=== PATIENT | male | born 1950 | race Caucasian/White ===

== ENCOUNTER 2016-11-28 20:10 | Emergency (ER) | payer MEDICARE, OTHER ==
[~2016-11-28 20:10] MED LIST: ASPI81 PO; ATOR20TA42 PO; MACR100C PO; METO25 PO; PANT20 PO; TRAM50 PO
[2016-11-28 20:11] VITALS: BP 155/79; PULSE 61; RESP 16; TEMP 97.4; O2SAT 97
--- NOTE | 2016-11-28 20:37 | PD ---
HPI Chief Complaint: Complaint Time Seen by Provider: 20:32 Travel History International Travel<30 days: No Contact w/Intl Traveler<30days: No History of Present Illness HPI 66-year-old male presents to the emergency department for evaluation of a blocked Heard catheter. The patient states that he had an outpatient procedure to scrape the inner lining of his bladder performed by Dr. Cesar today and had a Heard catheter placed post operatively. States that about 3 hours ago he began to notice bladder distention and that there was not any urine draining through the Heard catheter. He complains of suprapubic pain and distention and feeling as though he needs to urinate. He denies any fever, chills, nausea, vomiting, diarrhea, constipation. No other complaints. PFSH Past Medical History Hx Anticoagulant Therapy: No Arthritis: Yes Autoimmune Disease: No Blood Disorders: No Anxiety: Yes Depression: Yes Cardiac Catheterization: Yes (1997) Cardiovascular Problems: No High Cholesterol: Yes Chemotherapy: No Congestive Heart Failure: No COPD: Yes Cerebrovascular Accident: No Coronary Artery Disease: Yes Diabetes: No Diminished Hearing: No Endocrine: No Gastrointestinal Disorders: Yes GERD: Yes Glaucoma: No Headaches: Yes Hepatitis: No Hiatal Hernia: No Hypertension: No Immune Disorder: No Inguinal Hernia: Yes Kidney Stones: Yes Musculoskeletal: Yes (BACK INJURY 1989) Reproductive: No Respiratory: No Migraines: No Myocardial Infarction: Yes Radiation Therapy: No Renal Failure: No Seizures: No Sleep Apnea: No Thyroid Disease: No Ulcer: No Past Surgical History Abdominal Surgery: Yes (HERNIA REPAIR) AICD: No Arteriovenous Shunt: No Coronary Artery Bypass Graft: Yes (2007, 5 vessel) Ear Surgery: No Endocrine Surgery: No Eye Surgery: No Genitourinary Surgery: No Gynecologic Surgery: No Hysterectomy: No Insulin Pump: No Joint Replacement: No Oral Surgery: Yes (teeth removal) Pacemaker: No Thoracic Surgery: No Other Surgery: Yes (R 4th finger amp,lumbar and cervical surg) Social History Alcohol Use: No Tobacco Use: Yes (1PPD) Substance Use: No Allergies-Medications (Allergen,Severity, Reaction): Coded Allergies: Contrast Media (Verified Allergy, Severe, 11/28/16) Reported Meds & Prescriptions Reported Meds & Active Scripts Active Ultram (Tramadol HCl) 50 Mg Tab 50 Mg PO Q6H PRN FOR PAIN Macrobid (Nitrofurantoin Macrocrystals) 100 Mg Cap 100 Mg PO BID 7 Days Protonix (Pantoprazole Sodium) 20 Mg Tab 20 Mg PO DAILY Reported Metoprolol Tartrate 25 mg (Metoprolol Tartrate) 25 Mg Tab 12.5 Mg PO BID Lipitor (Atorvastatin Calcium) 20 Mg Tab 20 Mg PO HS Aspirin 81 Mg Tab 81 Mg PO DAILY Review of Systems Except as stated in HPI: all other systems reviewed are Neg Physical Exam Narrative GENERAL: Well-nourished and well-developed pleasant patient in no acute distress. SKIN: Warm and dry. HEAD: Normocephalic and atraumatic. EYES: No injection, drainage, or hyphema noted. PERRLA. EOMI. ENT: No nasal drainage noted. Oropharynx is clear. NECK: Supple and the trachea is midline. CARDIOVASCULAR: Regular rate and rhythm. RESPIRATORY: Breath sounds are equal bilaterally with no accessory muscle use, wheezing, rhonchi, or crackles. GASTROINTESTINAL: Suprapubic tenderness. Abdomen is soft and nondistended. GENITOURINARY: Circumcised. No lesions or erythema. No urethral discharge. Heard catheter in place. Performed in the presence of David SAWYER. MUSCULOSKELETAL: No obvious deformities, swelling, cyanosis, or ecchymosis is present throughout the upper and lower extremities. Patient has full range of motion without any signs of neurovascular compromise. NEUROLOGICAL: Awake, alert, and oriented. Normal speech and gait. Cranial nerves are grossly intact. Data Data Last Documented VS Vital Signs Date Time Temp Pulse Resp B/P Pulse Ox O2 Delivery O2 Flow Rate FiO2 11/28/16 20:28 61 15 11/28/16 20:11 97.4 155/79 97 Room Air Orders Bladder/Catheter Irrigation (11/28/16 20:32) Acetamin-Hydrocod 325-5 Mg ([place] 5-325 (11/28/16 21:00) MDM Medical Decision Making Medical Screen Exam Complete: Yes Emergency Medical Condition: Yes Differential Diagnosis Heard catheter obstruction versus urinary retention versus Heard catheter failure Narrative Course 66-year-old male presents to the emergency department for evaluation of obstructive Heard catheter. Patient is afebrile, vital signs are stable. He does have some suprapubic tenderness. Nursing staff irrigated the catheter which allowed for urine to flow freely. There is hematuria but this is secondary to his procedure today. He is having discomfort and pain s/p procedure so we'll give him a short prescription for pain medication. Instructed to follow-up with his urologist. Stable for discharge. I discussed the case with my attending physician Dr. Sepulveda who is aware of the patients history, physical examination findings, and treatment plan. Diagnosis Primary Impression: Obstructed Heard catheter Qualified Code: T83.091A - Obstructed Heard catheter, initial encounter Referrals: Urologist Patient Instructions: Heard Catheter Placement and Care (ED), General Instructions Additional Instructions: Take medication as prescribed. Do not take Lortab with alcohol or while driving. Follow-up with your Urologist. Return to the ED for any acute worsening of symptoms. Med/Other Pt SpecificInfo: Prescription(s) given Scripts Hydrocodone-Acetaminophen (Lortab)5-325 Mg Tab1 Tab PO Q6H PRN (PAIN) #8 TAB Ref 0 Prov:Jeanie Sepulveda MD 11/28/16 Disposition: 01 DISCHARGE HOME Condition: Stable Yumi Hyde Nov 28, 2016 20:37
[2016-11-28] MEDS ORDERED: HYDR-3533 PO (20:53)
--- NOTE | 2016-11-28 20:59 | PD ---
Data Data Last Documented VS Vital Signs Date Time Temp Pulse Resp B/P Pulse Ox O2 Delivery O2 Flow Rate FiO2 11/28/16 20:28 61 15 11/28/16 20:11 97.4 155/79 97 Room Air Orders Bladder/Catheter Irrigation (11/28/16 20:32) Acetamin-Hydrocod 325-5 Mg ([place] 5-325 (11/28/16 21:00) MDM Supervised Visit with PETE: Yes Narrative Course The history, exam, and medical decision-making in the associated midlevel provider note were completed with my assistance. I reviewed and agree with the findings presented. I attest that I had a [id number] encounter with the patient on the same day, and personally performed and documented my assessment and findings in the medical record. *My assessment and Findings: This is a 66-year-old male who had resection of bladder tumors today by Dr. Cesar and had a Heard catheter placed. He says that 3 hours ago he stopped making urine and he appreciated some bladder discomfort. Here in the emergency department he does have some blood-tinged urine. His Heard catheter was flushed and he drained 300 cc of urine. I did a bedside ultrasound which demonstrated a decompressed bladder. I think some of this discomfort is related to postsurgical pain. Patient will be discharged on pain medicine and can follow-up with his urologist. He was instructed on flushing his Heard catheter. Diagnosis Primary Impression: Obstructed Heard catheter Qualified Code: T83.091A - Obstructed Heard catheter, initial encounter Referrals: Urologist Patient Instructions: General Instructions, Heard Catheter Placement and Care ( ED) Additional Instruction: Take medication as prescribed. Do not take Lortab with alcohol or while driving. Follow-up with your Urologist. Return to the ED for any acute worsening of symptoms. Scripts Hydrocodone-Acetaminophen (Lortab)5-325 Mg Tab1 Tab PO Q6H PRN (PAIN) #8 TAB Ref 0 Prov:Jeanie Sepulveda MD 11/28/16 Disposition: 01 DISCHARGE HOME Condition: Stable Jeanie Sepulveda MD Nov 28, 2016 20:59
[2016-11-28] MEDS ORDERED: ACETAMINOPHEN/HYDROcodone 325 MG/5 MG TAB PO ONE (21:00)
== END 2016-11-28 21:49 | disposition home or self-care (01) ==
LOC: NEPC 20:10
DX: T83.091A Other mechanical complication of indwelling urethral catheter, initial encounter (principal); J44.9 Chronic obstructive pulmonary disease, unspecified; I25.10 Atherosclerotic heart disease of native coronary artery without angina pectoris; F17.210 Nicotine dependence, cigarettes, uncomplicated
CPT/HCPCS: 99283

== ENCOUNTER 2017-02-26 08:45 | Emergency (ER) | payer OTHER ==
[~2017-02-26] VITALS: Ht 190.5 cm; Wt 92.0 kg
[~2017-02-26 08:45] MED LIST changes: +HYDR-3533 PO
[2017-02-26 08:53] VITALS: BP 141/85; PULSE 62; RESP 16; O2SAT 98
[2017-02-26 09:03] VITALS: BP 141/65; PULSE 58; RESP 18; TEMP 97.5; O2SAT 98
[2017-02-26 09:45] VITALS: RESP 18; O2SAT 99
[2017-02-26] MEDS ORDERED: SODIUM CHLORIDE 0.9% FLUSH 10 ML FLUSH IVF PRN (09:45)
[2017-02-26 09:59] LABS: AUTOMATED NEUTROPHIL # 5.5 TH/MM3 (1.8-7.7); BASOPHIL # 0.1 TH/MM3 (0-0.2); EOSINOPHIL # 0.3 TH/MM3 (0-0.4); EOSINOPHIL % 3.8 % (0.0-4.0); HEMATOCRIT 45.4 % (39.0-51.0); HEMO FLAGS DIFF FINAL; LYMPH % 19.6 % (9.0-44.0); LYMPHOCYTE # 1.7 TH/MM3 (1.0-4.8); MEAN CELL VOLUME 88.2 FL (80.0-100.0); MEAN CORPUSCULAR HEMOGLOBIN 29.2 PG (27.0-34.0); MEAN CORPUSCULAR HGB CONC 33.1 % (32.0-36.0); MONO % 9.6 % (0.0-8.0); PLATELET COUNT 198 TH/MM3 (150-450); RED BLOOD COUNT 5.15 MIL/MM3 (4.50-5.90); RED CELL DISTRIBUTION WIDTH 15.1 % (11.6-17.2); WHITE BLOOD COUNT 8.4 TH/MM3 (4.0-11.0)
[2017-02-26 10:10] LABS: ANION GAP 7 MEQ/L (5-15); AST (GOT) 18 U/L (15-37); BICARBONATE 25.7 MEQ/L (21.0-32.0); BLOOD UREA NITROGEN 33 MG/DL (7-18); CHLORIDE 106 MEQ/L (98-107); GLOMERULAR FILTRATION RATE 40 ML/MIN (>89); MAGNESIUM 2.3 MG/DL (1.5-2.5); POTASSIUM 4.4 MEQ/L (3.5-5.1); SODIUM (NA) 139 MEQ/L (136-145)
[2017-02-26 10:16] LABS: ALKALINE PHOSPHATASE 134 U/L (45-117); ALT (GPT) 22 U/L (12-78); TOTAL BILIRUBIN ADULT 0.7 MG/DL (0.2-1.0)
[2017-02-26] MEDS ORDERED: AMIODARONE INJ 150 MG in DEXTROSE 5% IN WATER 100ML INJ 97 ML IV ONE ×2 (10:30)
[2017-02-26] MEDS ORDERED: AMIO400T PO (10:34)
--- NOTE | 2017-02-26 10:34 | PD ---
HPI Chief Complaint: Syncope/Near-Syncope Time Seen by Provider: 09:03 Travel History International Travel<30 days: No Contact w/Intl Traveler<30days: No Traveled to known affect area: No History of Present Illness HPI Is a 66-year-old man who presents to the emergency department complaining of intermittent dizziness and vertigo. States symptoms started the past couple weeks. The been worse over the past 1 week. He had one episode of syncope this started while he was sitting in a door. He felt lightheaded dizziness and woke up on the floor. Syncope apparently lasted just a few seconds. No chest pain. No trouble breathing. He does have a history of A. fib. He went to the [facility] today and they sent him over to the emergency department. He states in route with EMS he had one episode of A. fib associated with the same dizziness he's been having. He otherwise has been feeling generally well and healthy. No other complaints. History Past Medical History Narrative Medical History of A. fib times years History of bladder cancer, receiving intermittent infusions into the bladder chemotherapy actively now. CAD, history of CABG in 2007 Hyperlipidemia Social History Alcohol Use: No Tobacco Use: Yes (1PPD) Allergies-Medications (Allergen,Severity, Reaction): Coded Allergies: Contrast Media (Verified Allergy, Severe, 11/28/16) Iodine (Verified Allergy, Unknown, 02/26/17) Reported Meds & Prescriptions Reported Meds & Active Scripts Active Lortab (Hydrocodone-Acetaminophen) 5-325 Mg Tab 1 Tab PO Q6H PRN Ultram (Tramadol HCl) 50 Mg Tab 50 Mg PO Q6H PRN FOR PAIN Macrobid (Nitrofurantoin Macrocrystals) 100 Mg Cap 100 Mg PO BID 7 Days Protonix (Pantoprazole Sodium) 20 Mg Tab 20 Mg PO DAILY Reported Metoprolol Tartrate 25 mg (Metoprolol Tartrate) 25 Mg Tab 12.5 Mg PO BID Lipitor (Atorvastatin Calcium) 20 Mg Tab 20 Mg PO HS Aspirin 81 Mg Tab 81 Mg PO DAILY Review of Systems Except as stated in HPI: all other systems reviewed are Neg Physical Exam Narrative GENERAL: 66-year-old man, no acute distress. SKIN: Focused skin assessment warm/dry. HEAD: Atraumatic. Normocephalic. EYES: Pupils equal and round. No scleral icterus. No injection or drainage. ENT: No nasal bleeding or discharge. Mucous membranes pink and moist. NECK: Trachea midline. No JVD. CARDIOVASCULAR: Regular rate and rhythm. No murmur appreciated. RESPIRATORY: No accessory muscle use. Clear to auscultation. Breath sounds equal bilaterally. GASTROINTESTINAL: Abdomen soft, non-tender, nondistended. Hepatic and splenic margins not palpable. MUSCULOSKELETAL: No obvious deformities. No clubbing. No cyanosis. No edema. NEUROLOGICAL: Awake and alert. No obvious cranial nerve deficits. Motor grossly within normal limits. Normal speech. PSYCHIATRIC: Appropriate mood and affect; insight and judgment normal. Data Data Last Documented VS Vital Signs Date Time Temp Pulse Resp B/P Pulse Ox O2 Delivery O2 Flow Rate FiO2 02/26/17 09:45 18 99 Room Air 02/26/17 09:03 62 02/26/17 09:03 97.5 141/65 Orders Complete Blood Count With Diff (02/26/17 09:38) Comprehensive Metabolic Panel (02/26/17 09:38) Magnesium (Mg) (02/26/17 09:38) Troponin I (02/26/17 09:38) Chest, Single Ap (02/26/17 09:38) Ecg Monitoring (02/26/17 09:38) Iv Access Insert/Monitor (02/26/17 09:38) Oximetry (02/26/17 09:38) Oxygen Administration (02/26/17 09:38) Sodium Chloride 0.9% Flush (Ns Flush) (02/26/17 09:45) Labs Laboratory Tests Test 02/26/17 09:02 White Blood Count 8.4 TH/MM3 Red Blood Count 5.15 MIL/MM3 Hemoglobin 15.1 GM/DL Hematocrit 45.4 % Mean Corpuscular Volume 88.2 FL Mean Corpuscular Hemoglobin 29.2 PG Mean Corpuscular Hemoglobin 33.1 % Concent Red Cell Distribution Width 15.1 % Platelet Count 198 TH/MM3 Mean Platelet Volume 8.6 FL Neutrophils (%) (Auto) 66.0 % Lymphocytes (%) (Auto) 19.6 % Monocytes (%) (Auto) 9.6 % Eosinophils (%) (Auto) 3.8 % Basophils (%) (Auto) 1.0 % Neutrophils # (Auto) 5.5 TH/MM3 Lymphocytes # (Auto) 1.7 TH/MM3 Monocytes # (Auto) 0.8 TH/MM3 Eosinophils # (Auto) 0.3 TH/MM3 Basophils # (Auto) 0.1 TH/MM3 CBC Comment DIFF FINAL Differential Comment Sodium Level 139 MEQ/L Potassium Level 4.4 MEQ/L Chloride Level 106 MEQ/L Carbon Dioxide Level 25.7 MEQ/L Anion Gap 7 MEQ/L Blood Urea Nitrogen 33 MG/DL Creatinine 1.70 MG/DL Estimat Glomerular Filtration 40 ML/MIN Rate Random Glucose 102 MG/DL Calcium Level 9.1 MG/DL Magnesium Level 2.3 MG/DL Total Bilirubin 0.7 MG/DL Aspartate Amino Transf 18 U/L (AST/SGOT) Alanine Aminotransferase 22 U/L (ALT/SGPT) Alkaline Phosphatase 134 U/L Troponin I LESS THAN 0.02 NG/ML Total Protein 7.1 GM/DL Albumin 3.6 GM/DL [facility] Medical Decision Making Medical Screen Exam Complete: Yes Emergency Medical Condition: Yes Interpretation(s) My review of EKG: Normal sinus rhythm at a rate of 61, some sinus arrhythmia, small inferior Q waves, no definite evidence of acute ischemia. LABS: CBC unremarkable CMP, mildly elevated BUN/creatinine, asthma GFR 40 Troponin negative Chest x-ray: Negative. Differential Diagnosis A. fib, dizziness, anemia, electrolyte abnormality, other Narrative Course Medical decision making 66-year-old man with intermittent dizzy episodes, one episode of syncope, appears to correspond paroxysmal A. fib. Heart rates low at baseline. Patient does not follow with a local hand assembler, gets all of his care through the [facility]. Looks otherwise well and is a somatic in between episodes. At this point would recommend attempt at rhythm control, and referral to cardiology for further evaluation. He's been on rhythm control medicine in the past. We'll start amiodarone. Diagnosis Primary Impression: Atrial fibrillation Additional Impression: Syncope Additional Instructions: Take amiodarone as prescribed. Follow-up with your primary doctor with the [facility], and with cardiology with the [facility] , within the next one to 2 weeks. Return to the emergency department for any chest pain, trouble breathing, or any other new or worsening symptoms. Med/Other Pt SpecificInfo: Prescription(s) given Scripts Amiodarone 400 Mg Vme323 Mg PO BID 3 Days Ref 0 Prov:Aravind Whiteside MD 02/26/17 Disposition: 01 DISCHARGE HOME Condition: Stable Aravind Whiteside. MD Feb 26, 2017 10:34
--- NOTE | 2017-02-26 10:45 | RADRPT ---
EXAM DATE/TIME: 02/26/2017 09:44 [facility] COMPARISON: CHEST SINGLE AP, January 11, 2016, 12:35. INDICATIONS : Dizziness MEDICAL HISTORY : Chronic obstructive pulmonary disease. atrial fibrillation SURGICAL HISTORY : CABG. ENCOUNTER: Initial ACUITY: 1 day PAIN SCORE: 0/10 LOCATION: Bilateral chest FINDINGS: Portable AP view of the chest demonstrates a normal-sized cardiac silhouette in this patient post med rafia sternotomy and CABG. There is mild interstitial prominence in the mid and lower lung zones bilate rally similar to the prior study. No effusion, consolidation, or pneumothorax is identified. Bones an d soft tissues demonstrate no acute finding. CONCLUSION: Stable chest x-ray with interstitial prominence bilaterally in this patient post CABG. No acute findi ng is appreciated. Mc Paul MD on February 26, 2017 at 10:42 Board Certified Radiologist. This report was verified electronically.
[2017-02-26 10:55] VITALS: BP 146/82; PULSE 56; RESP 18; O2SAT 99
[2017-02-26 11:17] VITALS: BP 146/82; PULSE 52; RESP 18; O2SAT 98
--- NOTE | 2017-02-26 13:23 | EKG ---
Date Performed: 02/26/2017 Time Performed: 08:56:27 PTAGE: 66 years EKG: Sinus rhythm WITH SINUS ARRHYTHMIA POSSIBLE INFERIOR MYOCARDIAL INFARCTION BORDERLINE ECG NO PREVIOUS TRACING DOCTOR: Jayro Mccarthy Interpretating Date/Time 02/26/2017 13:21:40
== END 2017-02-26 13:00 | disposition home or self-care (01) ==
LOC: NEPE 08:45
DX: I48.91 Unspecified atrial fibrillation (principal); R55 Syncope and collapse; F17.210 Nicotine dependence, cigarettes, uncomplicated; Z95.1 Presence of aortocoronary bypass graft; I25.10 Atherosclerotic heart disease of native coronary artery without angina pectoris; E78.5 Hyperlipidemia, unspecified; I49.8 Other specified cardiac arrhythmias
CPT/HCPCS: 71010; 80053; 83735; 84484; 85025; 93005; 96374; 99284; J0282

== ENCOUNTER 2017-09-08 07:08 | Inpatient (IN) | payer OTHER, MEDICARE ==
[2017-09-08] VITALS (19 sets, daily range): BP systolic 93–132; BP diastolic 58–81; PULSE 65–155; RESP 16–20; TEMP 97.7–97.9; O2SAT 95–98
[~2017-09-08] VITALS: Ht 190.5 cm; Wt 90.5 kg
[~2017-09-08 07:08] MED LIST changes: +AMIO400T PO
--- NOTE | 2017-09-08 07:19 | PD ---
HPI Chief Complaint: Chest Pain Time Seen by Provider: 07:18 Travel History International Travel<30 days: No Contact w/Intl Traveler<30days: No Traveled to known affect area: No History of Present Illness HPI 66-year-old male came to the emergency room with history of shortness of breath and chest pain progressively worsening upon exertion for past 1 week. Patient says that one week ago he was in the [facility] to get a cyst removed and analyzed from his back. During the procedure his heart rate was very high and they had to send him to the emergency room. He was given a medicine through his IV and then started on by mouth Cardizem daily. The procedure was done and patient was discharged home. He says that he continues to have the shortness of breath since then. When he arrived in triage his heart rate was in 140s to 150s. Patient has also kept a log of his blood pressure and heart rate for past 1 week. His heart rate has been higher than 100s all throughout. He describes his pain as a dull ache on the left parasternal area without any radiation. He says the pain is worse when he gets up and walks few steps. Same thing with the shortness of breath. He says that his pain is gone when he is laying down. Patient smokes one and half pack of cigarettes per day. He's not on any oxygen at home. He has significant coronary artery disease history with a bypass in 2007. He takes 1 baby aspirin every day. [facility] Past Medical History Narrative Medical List of his past medical, surgical, social and family history is reviewed from the nursing note. Hx Anticoagulant Therapy: No Arthritis: Yes Autoimmune Disease: No Blood Disorders: No Anxiety: Yes Depression: Yes Cardiac Catheterization: Yes (1997) Cardiovascular Problems: Yes High Cholesterol: Yes Chemotherapy: No Congestive Heart Failure: No COPD: Yes Cerebrovascular Accident: No Coronary Artery Disease: Yes Diabetes: No Diminished Hearing: No Endocrine: No Gastrointestinal Disorders: Yes GERD: Yes Glaucoma: No Headaches: Yes Hepatitis: No Hiatal Hernia: No Heparin Induced Thrombocytopen: No Hypertension: No Immune Disorder: No Inguinal Hernia: Yes Kidney Stones: Yes Musculoskeletal: Yes (BACK INJURY 1989) Reproductive: No Respiratory: Yes (copd smoker) Migraines: No Myocardial Infarction: Yes Radiation Therapy: No Renal Failure: No Seizures: No Sleep Apnea: No Thyroid Disease: No Ulcer: No Past Surgical History Abdominal Surgery: Yes (HERNIA REPAIR) AICD: No Arteriovenous Shunt: No Coronary Artery Bypass Graft: Yes (2008, 5 vessel) Ear Surgery: No Endocrine Surgery: No Eye Surgery: No Genitourinary Surgery: No Gynecologic Surgery: No Hysterectomy: No Insulin Pump: No Joint Replacement: No Neurologic Surgery: No Oral Surgery: Yes (teeth removal) Pacemaker: No Thoracic Surgery: No Other Surgery: Yes (R 4th finger amp,lumbar and cervical surg) Social History Alcohol Use: No Tobacco Use: Yes (1PPD) Substance Use: No Allergies-Medications (Allergen,Severity, Reaction): Coded Allergies: diatrizoate meglumine (Unverified Allergy, Severe, 09/08/17) gadobenic acid (Unverified Allergy, Severe, 09/08/17) gadodiamide (Unverified Allergy, Severe, 09/08/17) gadoteridol (Unverified Allergy, Severe, 09/08/17) iodixanol (Unverified Allergy, Severe, 09/08/17) iohexol (Unverified Allergy, Severe, 09/08/17) iodine (Unverified Allergy, Unknown, 09/08/17) peanut (Verified Allergy, Unknown, 09/08/17) potassium iodide (Unverified Allergy, Unknown, 09/08/17) povidone-iodine (Unverified Allergy, Unknown, 09/08/17) sodium iodide (Unverified Allergy, Unknown, 09/08/17) sodium iodide (Unverified Allergy, Unknown, 09/08/17) Comments List of his allergies reviewed from the nursing note. Reported Meds & Prescriptions Reported Meds & Active Scripts Active Lortab (Hydrocodone-Acetaminophen) 5-325 Mg Tab 1 Tab PO Q6H PRN Reported Diltiazem (Diltiazem HCl) 30 Mg Tab 30 Mg PO BID Ranitidine (Ranitidine HCl) 150 Mg Tab 150 Mg PO BID [Sulfer] Aspirin 81 Mg Chew 81 Mg CHEW DAILY Narrative Medication List of his home medications reviewed from the nursing note. Review of Systems Except as stated in HPI: all other systems reviewed are Neg Cardiovascular: Positive: Chest Pain or Discomfort, Palpitations, Dyspnea on exertion Respiratory: Positive: Shortness of Breath Physical Exam Narrative GENERAL: Awake, alert, anxious, moderate distress SKIN: Focused skin assessment warm/dry. HEAD: Atraumatic. Normocephalic. EYES: Pupils equal and round. No scleral icterus. No injection or drainage. ENT: No nasal bleeding or discharge. Mucous membranes pink and moist. NECK: Trachea midline. No JVD. CARDIOVASCULAR: Irregularly irregular, tachycardic. No murmur appreciated. RESPIRATORY: No accessory muscle use. Clear to auscultation. Breath sounds equal bilaterally. GASTROINTESTINAL: Abdomen soft, non-tender, nondistended. Hepatic and splenic margins not palpable. MUSCULOSKELETAL: No obvious deformities. No clubbing. No cyanosis. No edema. NEUROLOGICAL: Awake and alert. No obvious cranial nerve deficits. Motor grossly within normal limits. Normal speech. PSYCHIATRIC: Appropriate mood and affect; insight and judgment normal. Data Data Last Documented VS Vital Signs Date Time Temp Pulse Resp B/P (MAP) Pulse Ox O2 Delivery O2 Flow Rate FiO2 09/08/17 09:12 105 16 122/74 (90) 97 Nasal Cannula 2.00 09/08/17 07:11 97.7 Orders Orders Diltiazem Inj (Cardizem Inj) (09/08/17 07:30) Electrocardiogram (09/08/17 07:25) Basic Metabolic Panel (Bmp) (09/08/17 07:25) B-Type Natriuretic Peptide (09/08/17 07:25) Ckmb (Isoenzyme) Profile (09/08/17 07:25) Complete Blood Count With Diff (09/08/17 07:25) Magnesium (Mg) (09/08/17 07:25) Prothrombin Time / Inr (Pt) (09/08/17 07:25) Act Partial Throm Time (Ptt) (09/08/17 07:25) Troponin I (09/08/17 07:25) Chest, Single Ap (09/08/17 07:25) Ecg Monitoring (09/08/17 07:25) Bilateral Bp Monitoring (09/08/17 07:25) Iv Access Insert/Monitor (09/08/17 07:25) Oximetry (09/08/17 07:25) Oxygen Administration (09/08/17 07:25) Aspirin Chew (Aspirin Chew) (09/08/17 07:30) Sodium Chloride 0.9% Flush (Ns Flush) (09/08/17 07:30) Diltiazem Inj (Cardizem Inj) (09/08/17 07:25) Vital Signs (Adult) Q15MX4,Q4H (09/08/17 07:31) [employer]ra[employer] Polisher Helper / Telemetry ANN.Q8H (09/08/17 07:31) Cardiac Rhythm ANN.Q8H (09/08/17 07:31) Notify Dr: Other (09/08/17 07:31) Diltiazem Inj (Cardizem Inj) (09/08/17 07:45) Heparin Infusion ANN.Q1H (09/08/17 08:40) Heparin Inj (Heparin Inj) (09/08/17 08:45) Heparin Inj (Heparin Inj) (09/08/17 14:45) Heparin Inj (Heparin Inj) (09/08/17 14:45) Heparin-D5w 25,000 U/250 Ml (Heparin-D5w (09/08/17 08:45) Act Partial Throm Time (Ptt) (09/08/17 08:40) Cbc No Diff, Includes Plts (09/08/17 08:40) Cbc No Diff, Includes Plts (09/11/17 06:00) Act Partial Throm Time (Ptt) (09/08/17 15:40) Occult Blood (Hemoccult) Stool (09/08/17 08:40) Furosemide Inj (Lasix Inj) (09/08/17 08:45) Admit Order (Ed Use Only) (09/08/17 09:52) Labs Laboratory Tests Test 09/08/17 07:20 09/08/17 09:20 White Blood Count 8.9 TH/MM3 8.9 TH/MM3 Red Blood Count 5.07 MIL/MM3 4.78 MIL/MM3 Hemoglobin 14.8 GM/DL 14.0 GM/DL Hematocrit 44.5 % 42.2 % Mean Corpuscular Volume 87.8 FL 88.4 FL Mean Corpuscular Hemoglobin 29.3 PG 29.3 PG Mean Corpuscular Hemoglobin Concent 33.4 % 33.1 % Red Cell Distribution Width 15.5 % 15.3 % Platelet Count 192 TH/MM3 178 TH/MM3 Mean Platelet Volume 8.4 FL 8.2 FL Neutrophils (%) (Auto) 68.6 % Lymphocytes (%) (Auto) 22.1 % Monocytes (%) (Auto) 6.6 % Eosinophils (%) (Auto) 2.3 % Basophils (%) (Auto) 0.4 % Neutrophils # (Auto) 6.1 TH/MM3 Lymphocytes # (Auto) 2.0 TH/MM3 Monocytes # (Auto) 0.6 TH/MM3 Eosinophils # (Auto) 0.2 TH/MM3 Basophils # (Auto) 0.0 TH/MM3 CBC Comment DIFF FINAL Differential Comment Prothrombin Time 11.8 SEC Prothromb Time International Ratio 1.1 RATIO Activated Partial Thromboplast Time 29.3 SEC Blood Urea Nitrogen 26 MG/DL Creatinine 1.97 MG/DL Random Glucose 141 MG/DL Calcium Level 9.4 MG/DL Magnesium Level 2.2 MG/DL Sodium Level 138 MEQ/L Potassium Level 4.4 MEQ/L Chloride Level 108 MEQ/L Carbon Dioxide Level 24.8 MEQ/L Anion Gap 5 MEQ/L Estimat Glomerular Filtration Rate 34 ML/MIN Total Creatine Kinase 75 U/L Troponin I 0.02 NG/ML B-Type Natriuretic Peptide 171 PG/ML MDM Medical Decision Making Medical Screen Exam Complete: Yes Emergency Medical Condition: Yes Medical Record Reviewed: Yes Interpretation(s) Twelve-lead EKG was reviewed by me. Atrial fibrillation, normal axis, RVR. Heart rate of 150 bpm. Differential Diagnosis A. fib with RVR, CHF, ACS, non-STEMI Narrative Course 8:50 AM blood test results are back. Patient has renal insufficiency. Chest x- ray shows mild congestion. Patient initially was given 20 mg of Cardizem bolus that brought the heart rate down to 100. He is on a Cardizem drip currently heart rate is between 80s to 100s. He has been persistently A. fib. I started him on heparin bolus and drip. Troponin is negative. I want to admit him for new onset atrial fibrillation chest pain. Critical Care Narrative Aggregate critical care time was 45 minutes. Time to perform other separately billable procedures was not included in the critical care time. My time did not include minutes spent treating any other patients simultaneously or on activities that did not directly contribute to the patient's treatment. The services I provided to this patient were to treat and/or prevent clinically significant deterioration that could result in: A. fib with RVR, Cardizem bolus with drip, heparin bolus and drip I provided critical care services requiring my management, as noted below: Chart data review, documentation time, medication orders and management, vital sign assessments/reviewing monitor data, ordering and reviewing lab tests, ordering and interpreting/reviewing x-rays and diagnostic studies, care of the patient and discussion of the patient with the admitting physicians. Procedures EKG Prior to Arrival: No Diagnosis Primary Impression: Atrial fibrillation with RVR Additional Impressions: New onset a-fib Chest pain Qualified Codes: R07.9 - Chest pain, unspecified Admitting Information Admitting Physician Requests: Admit Marques Jeong MD Sep 08, 2017 07:19
[2017-09-08] MEDS ORDERED: DILTIAZEM HCL 25 MG/5 ML VIAL ONE ×2 (07:25)
[2017-09-08] MEDS ORDERED: DILTIAZEM HCL 25 MG/5 ML VIAL IV ONE ×2 (07:30)
[2017-09-08] MEDS ORDERED: ASPIRIN 81 MG CHEW TAB PO ONE ×2 (07:30)
[2017-09-08] MEDS ORDERED: SODIUM CHLORIDE 0.9% FLUSH 10 ML FLUSH IVF PRN ×2 (07:30)
[2017-09-08] MEDS ORDERED: ASPI81CH CHEW ×2 (07:37)
[2017-09-08] MEDS ORDERED: DILT30TA PO ×2 (07:37)
[2017-09-08] MEDS ORDERED: RANI150T PO ×2 (07:37)
[2017-09-08] MEDS ORDERED: [UNRECOGNIZED DRUG - OTHER] ×2 (07:37)
[2017-09-08] MEDS ORDERED: DILTIAZEM INJ 125 MG in SODIUM CHLORIDE 0.9% INJ 100 ML IV PRN ×4 (07:45)
[2017-09-08 07:48] LABS: AUTOMATED NEUTROPHIL # 6.1 TH/MM3 (1.8-7.7); BASOPHIL % 0.4 % (0.0-2.0); EOSINOPHIL # 0.2 TH/MM3 (0-0.4); EOSINOPHIL % 2.3 % (0.0-4.0); HEMATOCRIT 44.5 % (39.0-51.0); HEMOGLOBIN 14.8 GM/DL (13.0-17.0); LYMPH % 22.1 % (9.0-44.0); MEAN CELL VOLUME 87.8 FL (80.0-100.0); MEAN CORPUSCULAR HEMOGLOBIN 29.3 PG (27.0-34.0); MEAN CORPUSCULAR HGB CONC 33.4 % (32.0-36.0); MEAN PLATELET VOLUME 8.4 FL (7.0-11.0); MONO % 6.6 % (0.0-8.0); MONOCYTE # 0.6 TH/MM3 (0-0.9); NEUT % 68.6 % (16.0-70.0); PLATELET COUNT 192 TH/MM3 (150-450); RED BLOOD COUNT 5.07 MIL/MM3 (4.50-5.90); RED CELL DISTRIBUTION WIDTH 15.5 % (11.6-17.2); WHITE BLOOD COUNT 8.9 TH/MM3 (4.0-11.0)
--- NOTE | 2017-09-08 07:50 | RADRPT ---
EXAM DATE/TIME: 09/08/2017 07:37 [facility] COMPARISON: CHEST SINGLE AP, February 26, 2017, 9:44. INDICATIONS : Chest pain MEDICAL HISTORY : HISTORY : Chronic obstructive pulmonary disease. atrial fibrillation SURGICAL HISTORY : ENCOUNTER: Initial ACUITY: 1 day PAIN SCORE: 0/10 LOCATION: chest FINDINGS: A single view of the chest demonstrates the lungs to be symmetrically aerated without evidence of mas s, infiltrate or effusion. There is mild diffuse interstitial prominence throughout the lungs. Clips and wires suggest CABG The cardiomediastinal contours are unremarkable. Osseous structures are intac t. CONCLUSION: Stable appearance of the chest. Lungs remain grossly clear. Mild diffuse interstitial prominence.. Aravind Hoffman MD on September 08, 2017 at 7:47 Board Certified Radiologist. This report was verified electronically.
[2017-09-08 07:58] LABS: INTERNATIONAL NORMALIZED RATIO 1.1 RATIO; PROTHROMBIN TIME - PATIENT 11.8 SEC (9.8-11.6)
[2017-09-08 08:05] LABS: BICARBONATE 24.8 MEQ/L (21.0-32.0); CALCIUM 9.4 MG/DL (8.5-10.1); CREATININE 1.97 MG/DL (0.60-1.30); MAGNESIUM 2.2 MG/DL (1.5-2.5)
[2017-09-08 08:09] LABS: TROPONIN I 0.02 NG/ML (0.02-0.05)
[2017-09-08] MEDS ORDERED: FUROSEMIDE 40 MG/4 ML VIAL IV PUSH ONE ×2 (08:45)
[2017-09-08] MEDS ORDERED: HEPARIN SODIUM - IV 10,000 UNITS/10 ML VIAL IV ONE ×2 (08:45)
[2017-09-08] MEDS: HEPARIN-D5W 25,000 U/250 ML 250 ML IV PRN ×2 (09:33)
[2017-09-08 09:54] LABS: HEMATOCRIT 42.2 % (39.0-51.0); MEAN CELL VOLUME 88.4 FL (80.0-100.0); MEAN CORPUSCULAR HEMOGLOBIN 29.3 PG (27.0-34.0); MEAN CORPUSCULAR HGB CONC 33.1 % (32.0-36.0); MEAN PLATELET VOLUME 8.2 FL (7.0-11.0); PLATELET COUNT 178 TH/MM3 (150-450); RED BLOOD COUNT 4.78 MIL/MM3 (4.50-5.90); RED CELL DISTRIBUTION WIDTH 15.3 % (11.6-17.2); WHITE BLOOD COUNT 8.9 TH/MM3 (4.0-11.0)
--- NOTE | 2017-09-08 10:03 | HHI.HP ---
[facility] Admission Diagnosis Diagnoses: Chief Complaint: Chest pain Travel History International Travel<30 Days: No Contact w/Intl Traveler <30 Da: No Traveled to Known Affected Are: No History of Present Illness This is a pleasant 66 y/o male with OA, Anxiety disorder, Depression, CAD status post CABG x 5 and PCI, Hyperlipidemia, COPD, GERD Active Tobacco dependence, Inguinal hernia, Urolithiasis, CKD III, who came to ER with SOB and chest pain progressively worsening upon exertion for the past one week, he was seen at [facility] to get a cyst removed and during the procedure his heart rate was high he was sent to ER, He was given a medicine through his IV and then started on by mouth Cardizem daily. The procedure was done and patient was discharged home. He says that he continues to have the shortness of breath since then. When he arrived in triage his heart rate was in 140s to 150s. Patient has also kept a log of his blood pressure and heart rate for past 1 week. His heart rate has been higher than 100s all throughout. He describes his pain as a dull ache on the left parasternal area without any radiation. He says the pain is worse when he gets up and walks few steps. Same thing with the shortness of breath. He says that his pain is gone when he is laying down. Patient smokes one and half pack of cigarettes per day. He's not on any oxygen at home. He has significant coronary artery disease history with a bypass in 2007. He takes 1 baby aspirin every day. Review of Systems Constitutional: DENIES: Fever, Chills, Change in appetite Endocrine: DENIES: Heat/cold intolerance Eyes: DENIES: Blurred vision, Eye pain Respiratory: COMPLAINS OF: Shortness of breath Cardiovascular: COMPLAINS OF: Chest pain Except as stated in HPI: all other systems reviewed are Neg Past Family Social History Past Medical History OA Anxiety disorder Depression CAD status post Cardiac Cath 1997 Hyperlipidemia COPD GERD Inguinal Hernia Urolithiasis CKD III Past Surgical History hernia Repair CABG x 5 2007 Reported Medications Reported Meds & Active Scripts Active Lortab (Hydrocodone-Acetaminophen) 5-325 Mg Tab 1 Tab PO Q6H PRN Reported Diltiazem (Diltiazem HCl) 30 Mg Tab 30 Mg PO BID Ranitidine (Ranitidine HCl) 150 Mg Tab 150 Mg PO BID [Sulfer] Aspirin 81 Mg Chew 81 Mg CHEW DAILY Allergies: Coded Allergies: diatrizoate meglumine (Unverified Allergy, Severe, 09/08/17) gadobenic acid (Unverified Allergy, Severe, 09/08/17) gadodiamide (Unverified Allergy, Severe, 09/08/17) gadoteridol (Unverified Allergy, Severe, 09/08/17) iodixanol (Unverified Allergy, Severe, 09/08/17) iohexol (Unverified Allergy, Severe, 09/08/17) iodine (Unverified Allergy, Unknown, 09/08/17) peanut (Verified Allergy, Unknown, 09/08/17) potassium iodide (Unverified Allergy, Unknown, 09/08/17) povidone-iodine (Unverified Allergy, Unknown, 09/08/17) sodium iodide (Unverified Allergy, Unknown, 09/08/17) sodium iodide (Unverified Allergy, Unknown, 09/08/17) Active Ordered Medications Current Medications Medications (Trade) Dose Ordered Sig/[place]ma Route Start Time Stop Time Status Last Admin (NS Flush) 2 ml UNSCH PRN IVF 09/08/17 07:30 Diltiazem HCl 125 mg/Sodium Chloride 125 ml @ 5 mls/hr TITRATE PRN IV 09/08/17 07:45 09/08/17 08:32 (Heparin Inj) 5,000 units UNSCH PRN IV 09/08/17 14:45 (Heparin Inj) 2,500 units UNSCH PRN IV 09/08/17 14:45 Heparin Sodium/ Dextrose 250 ml @ 10 mls/hr TITRATE PRN IV 09/08/17 08:45 09/08/17 09:33 (Aspirin Chew) 81 mg DAILY CHEW 09/09/17 09:00 Sodium Chloride 1,000 ml @ 30 mls/hr Q24H IV 09/08/17 10:04 09/08/17 12:41 (NS Flush) 2 ml UNSCH PRN IV FLUSH 09/08/17 10:15 (NS Flush) 2 ml BID IV FLUSH 09/08/17 21:00 (Tylenol) 650 mg Q4H PRN PO 09/08/17 10:15 (Zofran Inj) 4 mg Q6H PRN IVP 09/08/17 10:15 (Narcan Inj) 0.4 mg UNSCH PRN IV PUSH 09/08/17 10:15 (Blossom-Colace) 1 tab BID PO 09/08/17 21:00 (Milk Of Magnesia Liq) 30 ml Q12H PRN PO 09/08/17 10:15 (Senokot) 17.2 mg Q12H PRN PO 09/08/17 10:15 (Dulcolax Supp) 10 mg DAILY PRN RECTAL 09/08/17 10:15 (Lactulose Liq) 30 ml DAILY PRN PO 09/08/17 10:15 (Pepcid Inj) 10 mg Q12H IV PUSH 09/08/17 11:00 09/08/17 12:42 (Lipitor) 40 mg DAILY PO 09/08/17 10:15 09/08/17 12:41 (Toprol Xl) 25 mg DAILY PO 09/08/17 10:15 09/08/17 12:42 (Pulmicort Respule Neb) 0.5 mg Q12HR NEB NEB 09/08/17 10:15 (Atrovent Neb) 0.5 mg Q4HR NEB NEB 09/08/17 12:00 09/08/17 11:05 (Mucinex Er) 600 mg BID PO 09/08/17 21:00 Family History Asked and denied. Social History Tobacco dependence one pack of cigarettes daily Physical Exam Vital Signs Vital Signs Date Time Temp Pulse Resp B/P (MAP) Pulse Ox O2 Delivery O2 Flow Rate FiO2 09/08/17 09:12 105 16 122/74 (90) 97 Nasal Cannula 2.00 09/08/17 08:32 103 107/58 09/08/17 07:45 105 20 103/81 (88) 96 Nasal Cannula 2.00 96/67 (77) 09/08/17 07:45 103 20 97 Nasal Cannula 2.00 09/08/17 07:37 115 20 103/81 (88) 95 Nasal Cannula 2.00 09/08/17 07:37 98 Nasal Cannula 2.00 09/08/17 07:11 97.7 155 18 112/78 (89) 98 Physical Exam GENERAL: Awake, alert, anxious, moderate distress SKIN: Focused skin assessment warm/dry. HEAD: Atraumatic. Normocephalic. EYES: Pupils equal and round. No scleral icterus. No injection or drainage. ENT: No nasal bleeding or discharge. Mucous membranes pink and moist. NECK: Trachea midline. No JVD. CARDIOVASCULAR: Irregularly irregular, tachycardic. No murmur appreciated. RESPIRATORY: No accessory muscle use. Clear to auscultation. Breath sounds equal bilaterally. GASTROINTESTINAL: Abdomen soft, non-tender, nondistended. Hepatic and splenic margins not palpable. MUSCULOSKELETAL: No obvious deformities. No clubbing. No cyanosis. No edema. NEUROLOGICAL: Awake and alert. No obvious cranial nerve deficits. Motor grossly within normal limits. Normal speech. PSYCHIATRIC: Appropriate mood and affect; insight and judgment normal. Laboratory Laboratory Tests Test 09/08/17 07:20 White Blood Count 8.9 Red Blood Count 5.07 Hemoglobin 14.8 Hematocrit 44.5 Mean Corpuscular Volume 87.8 Mean Corpuscular Hemoglobin 29.3 Mean Corpuscular Hemoglobin Concent 33.4 Red Cell Distribution Width 15.5 Platelet Count 192 Mean Platelet Volume 8.4 Neutrophils (%) (Auto) 68.6 Lymphocytes (%) (Auto) 22.1 Monocytes (%) (Auto) 6.6 Eosinophils (%) (Auto) 2.3 Basophils (%) (Auto) 0.4 Neutrophils # (Auto) 6.1 Lymphocytes # (Auto) 2.0 Monocytes # (Auto) 0.6 Eosinophils # (Auto) 0.2 Basophils # (Auto) 0.0 CBC Comment DIFF FINAL Differential Comment Prothrombin Time 11.8 Prothromb Time International Ratio 1.1 Activated Partial Thromboplast Time 29.3 Blood Urea Nitrogen 26 Creatinine 1.97 Random Glucose 141 Calcium Level 9.4 Magnesium Level 2.2 Sodium Level 138 Potassium Level 4.4 Chloride Level 108 Carbon Dioxide Level 24.8 Anion Gap 5 Estimat Glomerular Filtration Rate 34 Total Creatine Kinase 75 Troponin I 0.02 B-Type Natriuretic Peptide 171 Result Diagram: 09/08/1771909/08/17719 Imaging Last Impressions Chest X-Ray 09/08/17724 Signed Impressions: Service Date/Time: Friday, September 08, 2017 07:37 - CONCLUSION: Stable appearance of the chest. Lungs remain grossly clear. Mild diffuse interstitial prominence.. MD Deepti Wilson VTE Risk Assessment Caprini VTE Risk Assessment: Mod/High Risk (score >= 2) Caprini Risk Assessment Model Point Value = 1 Point Value = 2 Point Value = 3 Point Value = 5 Age 41-60 Minor surgery BMI > 25 kg/m2 Swollen legs Varicose veins or History of unexplained or recurrent spontaneous Oral contraceptives or hormone replacement Sepsis (< 1 month) Serious lung disease, including pneumonia (< 1 month) Abnormal pulmonary function Acute myocardial infarction Congestive heart failure (< 1 month) History of inflammatory bowel disease Medical patient at bed rest Age 61-74 Arthroscopic surgery Major open surgery (> 45 min) Laparoscopic surgery (> 45 min) Malignancy Confined to bed (> 72 hours) Immobilizing plaster cast Central venous access Age >= 75 History of VTE Family history of VTE Factor V Leiden Prothrombin [id number] Lupus anticoagulant Anticardiolipin antibodies Elevated serum homocysteine Heparin-induced thrombocytopenia Other congenital or acquired thrombophilia Stroke (< 1 month) Elective arthroplasty Hip, pelvis, or leg fracture Acute spinal cord injury (< 1 month) Prophylaxis Regimen Total Risk Factor Score Risk Level Prophylaxis Regimen 0-1 Low Early ambulation 2 Moderate Order ONE of the following: *Sequential Compression Device (SCD) *Heparin 5000 units SQ BID 3-4 Higher Order ONE of the following medications: *Heparin 5000 units SQ TID *Enoxaparin/Lovenox 40 mg SQ daily (WT < 150 kg, CrCl > 30 mL/min) *Enoxaparin/Lovenox 30 mg SQ daily (WT < 150 kg, CrCl > 10-29 mL/min) *Enoxaparin/Lovenox 30 mg SQ BID (WT < 150 kg, CrCl > 30 mL/min) AND/OR *Sequential Compression Device (SCD) 5 or more Highest Order ONE of the following medications: *Heparin 5000 units SQ TID (Preferred with Epidurals) *Enoxaparin/Lovenox 40 mg SQ daily (WT < 150 kg, CrCl > 30 mL/min) *Enoxaparin/Lovenox 30 mg SQ daily (WT < 150 kg, CrCl > 10-29 mL/min) *Enoxaparin/Lovenox 30 mg SQ BID (WT < 150 kg, CrCl > 30 mL/min) AND *Sequential Compression Device (SCD) Assessment and Plan Assessment and Plan 1. Atrial Fibrillation with RVR new Onset patient already seen at [facility] was started on Cardizem by mouth and sent home on no anticoagulation in ER received 20 mg of Cardizem IV, placed on Cardizem drip and started on Heparin IV, will consult software support specialist, has also Chest pain, continue Cardiac monitoring, Cardiac Enzymes, Oxygen as needed to keep oxygen over 90%, Beta gaby start on Metoprolol XL 25 mg daily and follow, Aspirin already given in ER and continue, Morphine as needed for chest pain, Nitroglycerin Statins. 2. OA by history 3. Anxiety disorder/Depression on no medicines 4. CAD status post CABG x 5, PCI in 1997 5. COPD will continue Bronchodilator, Mucolytic and incentive spirometry 6. Hyperlipidemia on no medicines 7. GERD on low dose Famotidine while in house 8. Urolithiasis by history 9. CKD III stable continue monitor and avoid Contrast agents Gadolinium. he has multiple Allergies to this medicines. DVT prophylaxis with heparin Drip. Code Status Full Code. Discussed Condition With Patient ER physician Doctor Darius Henao MD Sep 08, 2017 10:03
[2017-09-08] MEDS ORDERED: NALOXONE HCL 0.4 MG/ML AMP IV PUSH PRN ×2 (10:15)
[2017-09-08] MEDS ORDERED: ACETAMINOPHEN 325 MG TAB PO PRN ×2 (10:15)
[2017-09-08] MEDS ORDERED: MAGNESIUM HYDROXIDE SUSP 30 ML CUP PO PRN ×2 (10:15)
[2017-09-08] MEDS ORDERED: BISACODYL 10 MG SUPP RECTAL PRN ×2 (10:15)
[2017-09-08] MEDS ORDERED: ONDANSETRON HCL 4 MG/2 ML VIAL IVP PRN ×2 (10:15)
[2017-09-08] MEDS ORDERED: SODIUM CHLORIDE 0.9% FLUSH 10 ML FLUSH IV FLUSH PRN ×2 (10:15)
[2017-09-08] MEDS ORDERED: LACTULOSE SYRUP 20 GM/30 ML CUP PO PRN ×2 (10:15)
[2017-09-08] MEDS ORDERED: SENNOSIDES 8.6 MG TAB PO PRN ×2 (10:15)
[2017-09-08] MEDS: RESP: BUDESONIDE 0.5 MG/2 ML NEB NEB SCH ×4 (11:04→20:00)
[2017-09-08] MEDS: RESP: IPRATROPIUM 0.5 MG/2.5 ML NEB NEB SCH ×8 (11:05→23:44)
[2017-09-08 11:11] LABS: CHOLESTEROL/ HDL RATIO 4.26 RATIO; HDL CHOLESTEROL 40.1 MG/DL (40.0-60.0)
[2017-09-08 11:32] LABS: FOLATE 12.7 NG/ML (3.1-17.5); FREE T4 1.13 NG/DL (0.76-1.46)
[2017-09-08] MEDS: ATORVASTATIN 40 MG TAB PO SCH ×2 (12:41)
[2017-09-08] MEDS: SODIUM CHLOR 0.9% 1000 ML INJ 1,000 ML IV SCH ×2 (12:41)
[2017-09-08] MEDS: FAMOTIDINE 20 MG/2 ML VIAL IV PUSH SCH ×4 (12:42→23:00)
[2017-09-08] MEDS: METOPROLOL SUCCINATE 25 MG EXTENDED RELEASE TAB PO SCH ×2 (12:42)
--- NOTE | 2017-09-08 13:09 | EKG ---
Date Performed: 09/08/2017 Time Performed: 07:25:00 PTAGE: 66 years EKG: ATRIAL FIBRILLATION WITH RAPID VENTRICULAR RESPONSE BORDERLINE RIGHT AXIS DEVIATION NONSPEC IFIC ST & T-WAVE ABNORMALITY ABNORMAL ECG PREVIOUS TRACING : 02/26/2017 08.56 Compared to previous tracing, atrial fibrillation has repla nata Sinus rhythm , heart rate has increased, nonspecific ST/T changes are now present. DOCTOR: Jayro Mccarthy Interpretating Date/Time 09/08/2017 13:08:16
[2017-09-08] MEDS ORDERED: HEPARIN SODIUM - IV 10,000 UNITS/10 ML VIAL IV PRN ×4 (14:45)
[2017-09-08 15:20] LABS: TROPONIN I 0.02 NG/ML (0.02-0.05)
[2017-09-08] MEDS: DILTIAZEM HCL 30 MG TAB PO SCH ×2 (17:43)
[2017-09-08] MEDS: SODIUM CHLORIDE 0.9% FLUSH 10 ML FLUSH IV FLUSH SCH ×2 (21:00)
[2017-09-08] MEDS: DOCUSATE SODIUM 50 MG/SENNA 8.6 MG TAB PO SCH ×2 (21:13)
[2017-09-08] MEDS: guaiFENesin E.R. 600 MG TAB PO SCH ×2 (21:13)
[2017-09-08 23:29] LABS: TROPONIN I 0.02 NG/ML (0.02-0.05)
[2017-09-09] VITALS (22 sets, daily range): BP systolic 107–138; BP diastolic 68–90; PULSE 62–116; RESP 16–18; TEMP 97.2–98.3; O2SAT 94–99
[2017-09-09] MEDS: DILTIAZEM HCL 30 MG TAB PO SCH ×8 (00:20→19:38)
[2017-09-09 01:54] LABS: BILIRUBIN, URINE NEG (NEG); BLOOD, URINE NEG (NEG); GLUCOSE,URINE NEG (NEG); KETONE, URINE NEG (NEG); MUCUS URINE FEW /lpf (OCC); NITRITE,URINE NEG (NEG); URINE COLOR YELLOW (YELLW/STRAW); URINE LEUKOCYTE ESTERASE SMALL (NEG)
[2017-09-09] MEDS: RESP: IPRATROPIUM 0.5 MG/2.5 ML NEB NEB SCH ×8 (03:47→16:00)
[2017-09-09 07:12] LABS: BASOPHIL # 0.1 TH/MM3 (0-0.2); BASOPHIL % 0.7 % (0.0-2.0); EOSINOPHIL # 0.2 TH/MM3 (0-0.4); EOSINOPHIL % 2.4 % (0.0-4.0); HEMOGLOBIN 14.3 GM/DL (13.0-17.0); LYMPH % 21.5 % (9.0-44.0); LYMPHOCYTE # 1.9 TH/MM3 (1.0-4.8); MEAN CORPUSCULAR HEMOGLOBIN 29.3 PG (27.0-34.0); MEAN CORPUSCULAR HGB CONC 33.3 % (32.0-36.0); MEAN PLATELET VOLUME 8.4 FL (7.0-11.0); MONOCYTE # 0.6 TH/MM3 (0-0.9); NEUT % 68.4 % (16.0-70.0); PLATELET COUNT 177 TH/MM3 (150-450); RED BLOOD COUNT 4.88 MIL/MM3 (4.50-5.90); RED CELL DISTRIBUTION WIDTH 15.5 % (11.6-17.2); WHITE BLOOD COUNT 8.8 TH/MM3 (4.0-11.0)
[2017-09-09 07:39] LABS: ALBUMIN 3.1 GM/DL (3.4-5.0); ALT (GPT) 30 U/L (12-78); AST (GOT) 23 U/L (15-37); BICARBONATE 22.9 MEQ/L (21.0-32.0); BLOOD UREA NITROGEN 27 MG/DL (7-18); CHLORIDE 105 MEQ/L (98-107); CREATININE 1.93 MG/DL (0.60-1.30); GLOMERULAR FILTRATION RATE 35 ML/MIN (>89); GLUCOSE,RANDOM 89 MG/DL (74-106); SODIUM (NA) 137 MEQ/L (136-145)
[2017-09-09 07:41] LABS: ALKALINE PHOSPHATASE 147 U/L (45-117); TOTAL BILIRUBIN ADULT 1.2 MG/DL (0.2-1.0); TOTAL PROTEIN 6.8 GM/DL (6.4-8.2)
--- NOTE | 2017-09-09 08:21 | MB ---
cc: GALINDO MCCORMICK DO DATE OF CONSULTATION: 09/08/2017 REASON FOR CONSULTATION Atrial fibrillation with chest pain. HISTORY OF PRESENT ILLNESS Sudhir Thornton is a pleasant 66-year-old male who presented to [facility] Emergency Room on September 08, 2017 due to palpitations and chest pain. He states that he was recently seen at the [facility] and during a procedure to remove a cyst he was noted to have a high heart rate. He was sent to the ER and given IV medication and started on Cardizem orally. He was not placed on anything as far as an anticoagulant. He states that lately he has been watching his heart rate and blood pressure. All his blood pressures for the past week have been higher than 100. He also notes a dull pain across the chest without any radiation. He states that this is mildly worse when he is up and moving and somewhat better when he relaxes. He has also noticed shortness of breath. In speaking with him he is currently without chest pain or shortness of breath. PAST MEDICAL HISTORY 1. Coronary artery disease. 2. Osteoarthritis. 3. Anxiety disorder. 4. Depression. 5. Hyperlipidemia. 6. COPD. 7. GERD. 8. CKD. 9. New onset atrial fibrillation. PAST SURGICAL HISTORY 1. Hernia repair. 2. Cardiac catheterization (November 04, 2007): Left main short, 20% stenosis. LAD has a proximal 50-60% stenosis followed by a mid 70% stenosis just prior to a stent. Ramus has a mid 70% stenosis. Circumflex mid vessel 30-40% with a stent in the middle having 20% in-stent restenosis. Left-sided PDA with proximal 80-90% stenosis. RCA co-dominant vessel which is subtotally occluded. 3. CABG x5 (November 06, 2007) with AMBROSIO to LAD, SVG to ramus, SVG to left PDA, SVG to posterolateral artery (circumflex), SVG to acute marginal/right coronary artery. ALLERGIES 1. DIATRIZOATE. 2. MEGLUMINE. 3. GADOBENIC ACID. 4. GADODIAMIDE. 5. GADOTERIDOL. 6. IODINE. 7. IODIXANOL. 8. IOHEXOL. 9. PEANUTS. 10.POTASSIUM IODIDE. 11.POVIDONE-IODINE. 12.SODIUM IODIDE. MEDICATIONS 1. Cardizem 30 mg b.i.d. 2. Aspirin 81 mg daily. 3. Lortab 5/325, every 6 hours as needed for pain. 4. Ranitidine 150 mg b.i.d. FAMILY HISTORY Denies premature coronary artery disease or sudden cardiac within the family. SOCIAL HISTORY Admits to 1 to 1-1/2 packs of cigarettes a day. REVIEW OF SYSTEMS 14-systems were reviewed including osteopathic. Pertinent positives and negatives as above, otherwise negative. PHYSICAL EXAMINATION VITAL SIGNS: Temperature 97.7, heart rate 80, blood pressure 119/78, respirations 17, pulse ox 97% on 2 liters. GENERAL: In general the patient appears well and in no acute distress, awake, alert and oriented x3. Extraocular muscles intact. Mucous membranes moist. NECK: Supple. No JVD at 45 degrees. No carotid bruits heard bilaterally. Carotid upstroke is brisk in nature. HEART: Irregularly irregular. Positive first and second heart sounds with no murmurs, gallops or rubs. LUNGS: Clear to auscultation bilaterally. No wheezes, rales or rhonchi. ABDOMEN: Soft, nontender, nondistended. No organomegaly noted. EXTREMITIES: No clubbing, cyanosis or edema. Femoral and distal pulses are intact bilaterally. NEUROLOGIC: No focal deficits. SKIN: Warm, dry and intact. MUSCULOSKELETAL: Osteopathically no kyphoscoliosis, lordosis or paraspinal tender points. LABORATORY Hemoglobin 14.0, hematocrit 42.2, platelets 178. Potassium 4.4, BUN 26, creatinine 1.97. Troponin 0.02. TSH 1.09. ELECTROCARDIOGRAM Electrocardiogram (September 08, 2017 at 0725): Atrial fibrillation with rapid ventricular response, borderline right axis deviation, nonspecific ST-T wave changes. RECOMMENDATIONS 1. Mr. Thornton presented with atrial fibrillation and appears that he has had a rapid ventricular response for the past week or so. He has only been placed on Cardizem p.o. 30 mg b.i.d. which is most likely not enough to control his heart rate. He has since been placed on a Cardizem drip and we will increase his Cardizem oral dose for control of his heart rate. 2. As far as anticoagulation goes he is currently a CHADS-VASc of 1 (hypertension), and because of this he will be placed on aspirin alone for anticoagulation. 3. His chest pain and shortness of breath may be due to his atrial fibrillation with rapid ventricular response, but may also be due to coronary artery disease. Because of this will have him undergo a pharmacologic nuclear stress test in the morning. If overnight his troponins become significantly positive then will discuss with him consideration of cardiac catheterization versus stress testing. 4. I spoke to him for greater than 3 minutes about tobacco cessation. 5. Further recommendations will be made based on the hospital course. Thank you for allowing me to see Sudhir Thornton. If there are any questions, please do not hesitate to call. Galindo Mccormick DO VGP/BT /4:23 PM /9:06 AM
--- NOTE | 2017-09-09 09:02 | HHI.PR ---
Subjective Remarks This is a pleasant 66 y/o male with OA, Anxiety disorder, Depression, CAD status post CABG x 5 and PCI, Hyperlipidemia, COPD, GERD Active Tobacco dependence, Inguinal hernia, Urolithiasis, CKD III, who came to ER with SOB and chest pain progressively worsening upon exertion for the past one week, he was seen at [facility] to get a cyst removed and during the procedure his heart rate was high he was sent to ER, He was given a medicine through his IV and then started on by mouth Cardizem daily. The procedure was done and patient was discharged home. He says that he continues to have the shortness of breath since then. When he arrived in triage his heart rate was in 140s to 150s. Patient has also kept a log of his blood pressure and heart rate for past 1 week. His heart rate has been higher than 100s all throughout. He describes his pain as a dull ache on the left parasternal area without any radiation. He says the pain is worse when he gets up and walks few steps. Same thing with the shortness of breath. He says that his pain is gone when he is laying down. Patient smokes one and half pack of cigarettes per day. He's not on any oxygen at home. He has significant coronary artery disease history with a bypass in 2007. He takes 1 baby aspirin every day. 09/09: Seen in his bedroom in the presence of nurse Miss Duran, as per patient he has Atrial Fibrillation with RVR recommended Stress test the patient states he has A Fib for the last two years after his CABG. no need for anticoagulation as per hearing instrument specialist only Aspirin due to CHARD score 1, asked for Stress test. no complaint by patient today but wants to start Eating. Objective Vital Signs Date Time Temp Pulse Resp B/P (MAP) Pulse Ox O2 Delivery O2 Flow Rate FiO2 09/09/17 06:20 76 09/09/17 05:16 75 09/09/17 04:07 97 09/09/17 03:16 97.6 101 18 107/77 (87) 96 09/09/17 03:00 103 09/09/17 02:00 74 09/09/17 01:02 65 09/09/17 00:39 68 09/09/17 00:19 98.3 98 18 122/85 (97) 95 09/08/17 23:00 84 09/08/17 22:01 72 09/08/17 21:00 72 09/08/17 20:44 95 09/08/17 20:00 88 09/08/17 19:50 97.9 92 18 93/65 (74) 95 09/08/17 19:00 67 09/08/17 18:03 87 09/08/17 17:44 96 09/08/17 16:07 87 09/08/17 15:45 97.8 114 18 132/74 (93) 95 09/08/17 15:40 65 09/08/17 15:40 97.8 114 18 132/74 (93) 95 09/08/17 14:30 80 17 119/78 (92) 97 2.00 09/08/17 12:46 93 16 100/58 (72) 96 Nasal Cannula 09/08/17 10:30 97 Nasal Cannula 2.00 09/08/17 09:12 105 16 122/74 (90) 97 Nasal Cannula 2.00 I/O 09/08/17 09/08/17 09/08/17 09/09/17 09/09/17 09/09/17 07:00 15:00 23:00 07:00 15:00 23:00 Intake Total 128 ml 625 ml 240 ml Output Total 2250 ml 150 ml Balance -2122 ml 625 ml 90 ml Intake Oral 480 ml 240 ml IV Total 128 ml 145 ml Output Urine Total 2250 ml 150 ml # Voids 4 1 # Bowel Movements 0 Result Diagram: 09/09/17 0610 09/09/17 0610 Imaging Last Impressions Chest X-Ray 09/08/17 0725 Signed Impressions: Service Date/Time: Friday, September 08, 2017 07:37 - CONCLUSION: Stable appearance of the chest. Lungs remain grossly clear. Mild diffuse interstitial prominence.. Aravind Hoffman MD Procedures None Other Results Laboratory Tests Test 09/08/17 07:20 09/08/17 14:10 09/08/17 20:07 09/09/17 01:33 Prothrombin Time 11.8 SEC Prothromb Time International Ratio 1.1 RATIO Hemoglobin A1c 6.0 % Blood Urea Nitrogen 26 MG/DL Creatinine 1.97 MG/DL Random Glucose 141 MG/DL Calcium Level 9.4 MG/DL Magnesium Level 2.2 MG/DL Sodium Level 138 MEQ/L Potassium Level 4.4 MEQ/L Chloride Level 108 MEQ/L Carbon Dioxide Level 24.8 MEQ/L B-Type Natriuretic Peptide 171 PG/ML Triglycerides Level 91 MG/DL Cholesterol Level 171 MG/DL LDL Cholesterol 113 MG/DL HDL Cholesterol 40.1 MG/DL Cholesterol/HDL Ratio 4.26 RATIO Vitamin B12 Level 590 PG/ML Folate 12.7 NG/ML Free Thyroxine 1.13 NG/DL Thyroid Stimulating Hormone 3rd Gen 1.090 uIU/ML Total Creatine Kinase 67 U/L Troponin I 0.02 NG/ML Urine Color YELLOW Urine Turbidity CLEAR Urine pH 6.0 Urine Specific [place] 1.016 Urine Protein TRACE mg/dL Urine Glucose (UA) NEG mg/dL Urine Ketones NEG mg/dL Urine Occult Blood NEG Urine Nitrite NEG Urine Bilirubin NEG Urine Urobilinogen 2.0 MG/DL Urine Leukocyte Esterase SMALL Urine RBC 2 /hpf Urine WBC 10 /hpf Urine Mucus FEW /lpf Microscopic Urinalysis Comment CULTURE INDICATED Test 09/09/17 06:10 White Blood Count 8.8 TH/MM3 Red Blood Count 4.88 MIL/MM3 Hemoglobin 14.3 GM/DL Hematocrit 43.0 % Mean Corpuscular Volume 88.0 FL Mean Corpuscular Hemoglobin 29.3 PG Mean Corpuscular Hemoglobin Concent 33.3 % Red Cell Distribution Width 15.5 % Platelet Count 177 TH/MM3 Mean Platelet Volume 8.4 FL Neutrophils (%) (Auto) 68.4 % Lymphocytes (%) (Auto) 21.5 % Monocytes (%) (Auto) 7.0 % Eosinophils (%) (Auto) 2.4 % Basophils (%) (Auto) 0.7 % Neutrophils # (Auto) 6.0 TH/MM3 Lymphocytes # (Auto) 1.9 TH/MM3 Monocytes # (Auto) 0.6 TH/MM3 Eosinophils # (Auto) 0.2 TH/MM3 Basophils # (Auto) 0.1 TH/MM3 CBC Comment DIFF FINAL Differential Comment Activated Partial Thromboplast Time 45.1 SEC Blood Urea Nitrogen 27 MG/DL Creatinine 1.93 MG/DL Random Glucose 89 MG/DL Total Protein 6.8 GM/DL Albumin 3.1 GM/DL Calcium Level 9.0 MG/DL Alkaline Phosphatase 147 U/L Aspartate Amino Transf (AST/SGOT) 23 U/L Alanine Aminotransferase (ALT/SGPT) 30 U/L Total Bilirubin 1.2 MG/DL Sodium Level 137 MEQ/L Potassium Level 4.7 MEQ/L Chloride Level 105 MEQ/L Carbon Dioxide Level 22.9 MEQ/L Anion Gap 9 MEQ/L Estimat Glomerular Filtration Rate 35 ML/MIN Objective Remarks GENERAL: Awake, alert, anxious, moderate distress SKIN: Focused skin assessment warm/dry. HEAD: Atraumatic. Normocephalic. EYES: Pupils equal and round. No scleral icterus. No injection or drainage. ENT: No nasal bleeding or discharge. Mucous membranes pink and moist. NECK: Trachea midline. No JVD. CARDIOVASCULAR: Irregularly irregular, tachycardic. No murmur appreciated. RESPIRATORY: No accessory muscle use. Clear to auscultation. Breath sounds equal bilaterally. GASTROINTESTINAL: Abdomen soft, non-tender, nondistended. Hepatic and splenic margins not palpable. MUSCULOSKELETAL: No obvious deformities. No clubbing. No cyanosis. No edema. NEUROLOGICAL: Awake and alert. No obvious cranial nerve deficits. Motor grossly within normal limits. Normal speech. PSYCHIATRIC: Appropriate mood and affect; insight and judgment normal. Medications and IVs Current Medications Medications (Trade) Dose Ordered Sig/[place]ma Route Start Time Stop Time Status Last Admin (NS Flush) 2 ml UNSCH PRN IVF 09/08/17 07:30 Diltiazem HCl 125 mg/Sodium Chloride 125 ml @ 5 mls/hr TITRATE PRN IV 09/08/17 07:45 09/08/17 08:32 (Heparin Inj) 5,000 units UNSCH PRN IV 09/08/17 14:45 (Heparin Inj) 2,500 units UNSCH PRN IV 09/08/17 14:45 Heparin Sodium/ Dextrose 250 ml @ 10 mls/hr TITRATE PRN IV 09/08/17 08:45 09/08/17 09:33 (Aspirin Chew) 81 mg DAILY CHEW 09/09/17 09:00 Sodium Chloride 1,000 ml @ 30 mls/hr Q24H IV 09/08/17 10:04 09/08/17 12:41 (NS Flush) 2 ml UNSCH PRN IV FLUSH 09/08/17 10:15 (NS Flush) 2 ml BID IV FLUSH 09/08/17 21:00 (Tylenol) 650 mg Q4H PRN PO 09/08/17 10:15 (Zofran Inj) 4 mg Q6H PRN IVP 09/08/17 10:15 (Narcan Inj) 0.4 mg UNSCH PRN IV PUSH 09/08/17 10:15 (Blossom-Colace) 1 tab BID PO 09/08/17 21:00 09/08/17 21:13 (Milk Of Magnesia Liq) 30 ml Q12H PRN PO 09/08/17 10:15 (Senokot) 17.2 mg Q12H PRN PO 09/08/17 10:15 (Dulcolax Supp) 10 mg DAILY PRN RECTAL 09/08/17 10:15 (Lactulose Liq) 30 ml DAILY PRN PO 09/08/17 10:15 (Pepcid Inj) 10 mg Q12H IV PUSH 09/08/17 11:00 09/08/17 12:42 (Lipitor) 40 mg DAILY PO 09/08/17 10:15 09/08/17 12:41 (Toprol Xl) 25 mg DAILY PO 09/08/17 10:15 09/08/17 12:42 (Pulmicort Respule Neb) 0.5 mg Q12HR NEB NEB 09/08/17 10:15 (Atrovent Neb) 0.5 mg Q4HR NEB NEB 09/08/17 12:00 09/08/17 16:40 (Mucinex Er) 600 mg BID PO 09/08/17 21:00 09/08/17 21:13 (Cardizem) 30 mg Q6HR PO 09/08/17 18:00 09/09/17 06:07 A/P Assessment and Plan 1. Atrial Fibrillation with RVR patient already seen at [place] was started on Cardizem by mouth and sent home on no anticoagulation in ER received 20 mg of Cardizem IV, placed on Cardizem drip and started on Heparin IV, will consult hearing instrument specialist, has also Chest pain, continue Cardiac monitoring, Cardiac Enzymes, Oxygen as needed to keep oxygen over 90%, Beta gaby start on Metoprolol XL 25 mg daily and follow, Aspirin already given in ER and continue, Morphine as needed for chest pain, Nitroglycerin Statins. sinus rhythm at this time. 2. OA by history 3. Anxiety disorder/Depression on no medicines 4. CAD status post CABG x 5, PCI in 1997 5. COPD will continue Bronchodilator, Mucolytic and incentive spirometry 6. Hyperlipidemia on no medicines 7. GERD on low dose Famotidine while in house 8. Urolithiasis by history 9. CKD III stable continue monitor and avoid Contrast agents Gadolinium. he has multiple Allergies to this medicines. 10. Tobacco dependence strongly recommended to stop smoking. DVT prophylaxis with heparin Drip. Code Status Full Code. Discussed Condition With Patient, nurse and Doctor Frank Discharge Planning Once cleared by hearing instrument specialist. Darius Dolan MD Sep 09, 2017 09:02
[2017-09-09] MEDS: RESP: BUDESONIDE 0.5 MG/2 ML NEB NEB SCH ×2 (09:16)
[2017-09-09] MEDS: ATORVASTATIN 40 MG TAB PO SCH ×2 (10:07)
[2017-09-09] MEDS: ASPIRIN 81 MG CHEW TAB CHEW SCH ×2 (10:08)
[2017-09-09] MEDS: METOPROLOL SUCCINATE 25 MG EXTENDED RELEASE TAB PO SCH ×2 (10:08)
[2017-09-09] MEDS: DOCUSATE SODIUM 50 MG/SENNA 8.6 MG TAB PO SCH ×4 (10:08→21:58)
[2017-09-09] MEDS: guaiFENesin E.R. 600 MG TAB PO SCH ×4 (10:08→21:58)
[2017-09-09] MEDS: SODIUM CHLORIDE 0.9% FLUSH 10 ML FLUSH IV FLUSH SCH ×4 (10:09→21:59)
[2017-09-09] MEDS: FAMOTIDINE 20 MG/2 ML VIAL IV PUSH SCH ×2 (12:03)
[2017-09-09] MEDS: HEPARIN-D5W 25,000 U/250 ML 250 ML IV PRN ×2 (12:03)
[2017-09-09] MEDS ORDERED: REGADENOSON INJ 0.4 MG/5 ML SYR ONE ×2 (13:59)
--- NOTE | 2017-09-09 15:50 | RADRPT ---
EXAM DATE/TIME: 09/09/2017 13:28 [place] COMPARISON: No previous studies available for comparison. INDICATIONS : Substernal chest pain with dyspnea. Angina. Coronary artery disease. DOSE: 25.4 mCi Tc99m Myoview at stress. 8.5 mCi Tc99m Myoview at rest. 0.4 mg Lexiscan STRESS SYMPTOMS: Dyspnea and dizziness. EJECTION FRACTION: 34% MEDICAL HISTORY : Chronic obstructive pulmonary disease. Gastroesophageal reflux disease. Renal insufficiency, chronic. SURGICAL HISTORY : CABG Inguinal hernia repair. ENCOUNTER: Initial ACUITY: 2 days PAIN SCALE: 5/10 LOCATION: Substernal chest TECHNIQUE: The patient underwent pharmacologic stress with infusion of prescribed dose. Continuous ECG tracing was monitored during stress. Gated SPECT imaging was performed after stress and conventional SPECT i maging was performed at rest. The examination was performed on a SPECT/CT scanner, both attenuation and non-corrected datasets were reviewed. FINDINGS: At stress the best perfused myocardium is the septum followed by the anterior wall. There is dilatat ion of ventricular cavity. The fixed defect in the base. There is minimal redistribution, borderline significant in a small segment of anterior myocardium f rom mid ventricular wall towards the base. The ejection fraction is 45%. With mild inferior wall hypokinesis. CONCLUSION: Minimal stress-induced ischemia anterior wall. RISK CATEGORY: Low (<1% Annual Mortality Rate) Donte Vergara MD FACR on September 09, 2017 at 15:45 Board Certified Radiologist. This report was verified electronically.
--- NOTE | 2017-09-09 22:09 | PD.CARD.PN ---
Subjective Subjective Remarks No events overnight Feels well, no chest pain/SOB Afib mostly controlled Objective Medications Current Medications Medications (Trade) Dose Ordered Sig/[place] Route Start Time Stop Time Status Last Admin (NS Flush) 2 ml UNSCH PRN IVF 09/08/17 07:30 Diltiazem HCl 125 mg/Sodium Chloride 125 ml @ 5 mls/hr TITRATE PRN IV 09/08/17 07:45 09/08/17 08:32 (Aspirin Chew) 81 mg DAILY CHEW 09/09/17 09:00 09/09/17 10:08 Sodium Chloride 1,000 ml @ 83 mls/hr Q12H3M IV 09/08/17 10:04 09/08/17 12:41 (NS Flush) 2 ml UNSCH PRN IV FLUSH 09/08/17 10:15 (NS Flush) 2 ml BID IV FLUSH 09/08/17 21:00 09/09/17 21:59 (Tylenol) 650 mg Q4H PRN PO 09/08/17 10:15 (Zofran Inj) 4 mg Q6H PRN IVP 09/08/17 10:15 (Narcan Inj) 0.4 mg UNSCH PRN IV PUSH 09/08/17 10:15 (Blossom-Colace) 1 tab BID PO 09/08/17 21:00 09/09/17 21:58 (Milk Of Magnesia Liq) 30 ml Q12H PRN PO 09/08/17 10:15 (Senokot) 17.2 mg Q12H PRN PO 09/08/17 10:15 (Dulcolax Supp) 10 mg DAILY PRN RECTAL 09/08/17 10:15 (Lactulose Liq) 30 ml DAILY PRN PO 09/08/17 10:15 (Pepcid Inj) 10 mg Q12H IV PUSH 09/08/17 11:00 09/09/17 12:03 (Lipitor) 40 mg DAILY PO 09/08/17 10:15 09/09/17 10:07 (Toprol Xl) 25 mg DAILY PO 09/08/17 10:15 09/09/17 10:08 (Pulmicort Respule Neb) 0.5 mg Q12HR NEB NEB 09/08/17 10:15 09/09/17 09:16 (Atrovent Neb) 0.5 mg Q4HR NEB NEB 09/08/17 12:00 09/09/17 16:00 (Mucinex Er) 600 mg BID PO 09/08/17 21:00 09/09/17 21:58 (Cardizem) 30 mg Q6HR PO 09/08/17 18:00 09/09/17 19:38 Vital Signs / I&O Vital Signs Date Time Temp Pulse Resp B/P (MAP) Pulse Ox O2 Delivery O2 Flow Rate FiO2 09/09/17 17:15 98.2 96 17 115/71 (86) 96 09/09/17 17:00 74 09/09/17 12:00 94 09/09/17 11:00 87 09/09/17 11:00 97.5 98 16 114/87 (96) 99 09/09/17 10:00 86 09/09/17 09:18 96 Nasal Cannula 1.50 09/09/17 09:00 82 09/09/17 08:00 97.2 85 16 108/68 (81) 96 09/09/17 08:00 108 09/09/17 06:20 76 09/09/17 05:16 75 09/09/17 04:07 97 09/09/17 03:16 97.6 101 18 107/77 (87) 96 09/09/17 03:00 103 09/09/17 02:00 74 09/09/17 01:02 65 09/09/17 00:39 68 09/09/17 00:19 98.3 98 18 122/85 (97) 95 09/08/17 23:00 84 I/O 09/08/17 09/08/17 09/08/17 09/09/17 09/09/17 09/09/17 07:00 15:00 23:00 07:00 15:00 23:00 Intake Total 128 ml 625 ml 240 ml 665 ml 240 ml Output Total 2250 ml 150 ml Balance -2122 ml 625 ml 90 ml 665 ml 240 ml Intake Oral 480 ml 240 ml 240 ml IV Total 128 ml 145 ml 665 ml Output Urine Total 2250 ml 150 ml # Voids 4 1 4 # Bowel Movements 0 1 Physical Exam GENERAL: NAD, AAOx3 SKIN: Warm and dry. HEAD: Atraumatic. Normocephalic. EYES: Pupils equal and round. No scleral icterus. No injection or drainage. ENT: No nasal bleeding or discharge. Mucous membranes pink and moist. NECK: Trachea midline. No JVD. CARDIOVASCULAR: Irregularly irregular RESPIRATORY: No accessory muscle use. Clear to auscultation. Breath sounds equal bilaterally. GASTROINTESTINAL: Abdomen soft, non-tender, nondistended. Hepatic and splenic margins not palpable. MUSCULOSKELETAL: Extremities without clubbing, cyanosis, or edema. No obvious deformities. NEUROLOGICAL: Awake and alert. No obvious cranial nerve deficits. Motor grossly within normal limits. Five out of 5 muscle strength in the arms and legs. Normal speech. PSYCHIATRIC: Appropriate mood and affect; insight and judgment normal. Laboratory Laboratory Tests Test 09/08/17 23:32 09/09/17 01:33 09/09/17 06:10 Activated Partial Thromboplast Time 41.3 SEC 45.1 SEC Urine Color YELLOW Urine Turbidity CLEAR Urine pH 6.0 Urine Specific [place] 1.016 Urine Protein TRACE mg/dL Urine Glucose (UA) NEG mg/dL Urine Ketones NEG mg/dL Urine Occult Blood NEG Urine Nitrite NEG Urine Bilirubin NEG Urine Urobilinogen 2.0 MG/DL Urine Leukocyte Esterase SMALL Urine RBC 2 /hpf Urine WBC 10 /hpf Urine Mucus FEW /lpf Microscopic Urinalysis Comment CULTURE INDICATED White Blood Count 8.8 TH/MM3 Red Blood Count 4.88 MIL/MM3 Hemoglobin 14.3 GM/DL Hematocrit 43.0 % Mean Corpuscular Volume 88.0 FL Mean Corpuscular Hemoglobin 29.3 PG Mean Corpuscular Hemoglobin Concent 33.3 % Red Cell Distribution Width 15.5 % Platelet Count 177 TH/MM3 Mean Platelet Volume 8.4 FL Neutrophils (%) (Auto) 68.4 % Lymphocytes (%) (Auto) 21.5 % Monocytes (%) (Auto) 7.0 % Eosinophils (%) (Auto) 2.4 % Basophils (%) (Auto) 0.7 % Neutrophils # (Auto) 6.0 TH/MM3 Lymphocytes # (Auto) 1.9 TH/MM3 Monocytes # (Auto) 0.6 TH/MM3 Eosinophils # (Auto) 0.2 TH/MM3 Basophils # (Auto) 0.1 TH/MM3 CBC Comment DIFF FINAL Differential Comment Blood Urea Nitrogen 27 MG/DL Creatinine 1.93 MG/DL Random Glucose 89 MG/DL Total Protein 6.8 GM/DL Albumin 3.1 GM/DL Calcium Level 9.0 MG/DL Alkaline Phosphatase 147 U/L Aspartate Amino Transf (AST/SGOT) 23 U/L Alanine Aminotransferase (ALT/SGPT) 30 U/L Total Bilirubin 1.2 MG/DL Sodium Level 137 MEQ/L Potassium Level 4.7 MEQ/L Chloride Level 105 MEQ/L Carbon Dioxide Level 22.9 MEQ/L Anion Gap 9 MEQ/L Estimat Glomerular Filtration Rate 35 ML/MIN Imaging Last 24 hours Impressions Myocardial Perfusion Scan Nuc Med 09/09/17 0000 Signed Impressions: Service Date/Time: Saturday, September 09, 2017 13:28 - CONCLUSION: Minimal stress-induced ischemia anterior wall. RISK CATEGORY: Low (<1%% Annual Mortality Rate) Donte Vergara MD FACR Assessment and Plan Problem List: (1) Atrial fibrillation with RVR ICD Codes: I48.91 - Unspecified atrial fibrillation Status: Acute (2) New onset a-fib ICD Codes: I48.91 - Unspecified atrial fibrillation Status: Acute (3) Chest pain ICD Codes: R07.9 - Chest pain Status: Acute Assessment and Plan 1) New onset AFib Controlled on Cardizem 30mg q6hrs Can be switched to Cardizem CD on discharge CHADSVASc = 1, plan on keeping on ASA 81mg daily 2) SOB May be ischemic in nature vs due to elevated heart rates 3) Chest pain Abnormal myocardial stress test with small area of anterior wall (low risk) Discussed with the patient, wants to attempt medical management, before invasive management Will add Lopressor 25mg BID and nitro SL PRN for discharge 4) Will plan for discharge in the morning if stable Will follow up with myself in 1-2 weeks Problem Qualifiers (1) Chest pain: Qualified Codes: R07.9 - Chest pain, unspecified Galindo Frank DO Sep 09, 2017 22:09
[2017-09-10] VITALS (15 sets, daily range): BP systolic 111–137; BP diastolic 76–98; PULSE 70–140; RESP 16–18; TEMP 97.7–98.2; O2SAT 94–98
[2017-09-10] MEDS: RESP: IPRATROPIUM 0.5 MG/2.5 ML NEB NEB SCH ×8 (00:30→11:02)
[2017-09-10] MEDS: DILTIAZEM HCL 30 MG TAB PO SCH ×6 (00:44→12:36)
[2017-09-10] MEDS: FAMOTIDINE 20 MG/2 ML VIAL IV PUSH SCH ×4 (00:44→12:36)
[2017-09-10] MEDS: RESP: BUDESONIDE 0.5 MG/2 ML NEB NEB SCH ×2 (08:01)
[2017-09-10] MEDS: SODIUM CHLORIDE 0.9% FLUSH 10 ML FLUSH IV FLUSH SCH ×2 (09:51)
[2017-09-10] MEDS: guaiFENesin E.R. 600 MG TAB PO SCH ×2 (09:52)
[2017-09-10] MEDS: ATORVASTATIN 40 MG TAB PO SCH ×2 (09:52)
[2017-09-10] MEDS: ASPIRIN 81 MG CHEW TAB CHEW SCH ×2 (09:52)
[2017-09-10] MEDS: DOCUSATE SODIUM 50 MG/SENNA 8.6 MG TAB PO SCH ×2 (09:53)
[2017-09-10] MEDS: METOPROLOL SUCCINATE 25 MG EXTENDED RELEASE TAB PO SCH ×2 (09:53)
[2017-09-10] MEDS: SODIUM CHLOR 0.9% 1000 ML INJ 1,000 ML IV SCH ×2 (10:14)
--- NOTE | 2017-09-10 10:49 | HHI.PR ---
Subjective Remarks This is a pleasant 66 y/o male with OA, Anxiety disorder, Depression, CAD status post CABG x 5 and PCI, Hyperlipidemia, COPD, GERD Active Tobacco dependence, Inguinal hernia, Urolithiasis, CKD III, who came to ER with SOB and chest pain progressively worsening upon exertion for the past one week, he was seen at [facility] to get a cyst removed and during the procedure his heart rate was high he was sent to ER, He was given a medicine through his IV and then started on by mouth Cardizem daily. The procedure was done and patient was discharged home. He says that he continues to have the shortness of breath since then. When he arrived in triage his heart rate was in 140s to 150s. Patient has also kept a log of his blood pressure and heart rate for past 1 week. His heart rate has been higher than 100s all throughout. He describes his pain as a dull ache on the left parasternal area without any radiation. He says the pain is worse when he gets up and walks few steps. Same thing with the shortness of breath. He says that his pain is gone when he is laying down. Patient smokes one and half pack of cigarettes per day. He's not on any oxygen at home. He has significant coronary artery disease history with a bypass in 2007. He takes 1 baby aspirin every day. 09/09: Seen in his bedroom in the presence of nurse Miss Duran, as per patient he has Atrial Fibrillation with RVR recommended Stress test the patient states he has A Fib for the last two years after his CABG. no need for anticoagulation as per senior project controls specialist only Aspirin due to CHARD score 1, asked for Stress test. no complaint by patient today but wants to start Eating. 09/10: Stable in his bedroom already recommended by Doctor Frank for discharge today, but the patient has heart rate in 150s with some activity so Doctor Zac will come to see the patient again the nurse will notify me if okay to discharge later today. no nausea, vomit or diarrhea. Objective Vital Signs Date Time Temp Pulse Resp B/P (MAP) Pulse Ox O2 Delivery O2 Flow Rate FiO2 09/10/17 10:00 140 09/10/17 09:00 82 09/10/17 08:01 98 21 09/10/17 08:00 100 09/10/17 07:40 98.2 84 17 137/98 (111) 96 09/10/17 07:00 81 09/10/17 06:00 82 09/10/17 05:00 72 09/10/17 04:00 97.7 76 16 112/81 (91) 95 09/10/17 04:00 74 09/10/17 03:00 70 09/10/17 02:00 76 09/10/17 01:00 102 09/10/17 00:00 97.8 83 16 111/76 (88) 94 09/10/17 00:00 78 09/09/17 23:00 67 09/09/17 22:00 98 09/09/17 21:00 92 09/09/17 20:00 116 09/09/17 20:00 97.8 108 16 111/84 (93) 94 09/09/17 19:00 93 09/09/17 17:15 98.2 96 17 115/71 (86) 96 09/09/17 17:00 74 09/09/17 12:00 94 09/09/17 11:00 87 09/09/17 11:00 97.5 98 16 114/87 (96) 99 I/O 09/09/17 09/09/17 09/09/17 09/10/17 09/10/17 09/10/17 07:00 15:00 23:00 07:00 15:00 23:00 Intake Total 240 ml 665 ml 240 ml 720 ml Output Total 150 ml 1 ml Balance 90 ml 665 ml 240 ml 719 ml Intake Oral 240 ml 240 ml 720 ml IV Total 665 ml Output Urine Total 150 ml Stool Total 1 ml # Voids 1 4 2 # Bowel Movements 1 Result Diagram: 09/09/17 0610 09/09/17 0610 Imaging Last Impressions Myocardial Perfusion Scan Nuc Med 09/09/17 0000 Signed Impressions: Service Date/Time: Saturday, September 09, 2017 13:28 - CONCLUSION: Minimal stress-induced ischemia anterior wall. RISK CATEGORY: Low (<1%% Annual Mortality Rate) Donte Vergara MD FACR Chest X-Ray 09/08/17 0725 Signed Impressions: Service Date/Time: Friday, September 08, 2017 07:37 - CONCLUSION: Stable appearance of the chest. Lungs remain grossly clear. Mild diffuse interstitial prominence.. Aravind Hoffman MD Procedures None Other Results Laboratory Tests Test 09/08/17 07:20 09/08/17 14:10 09/08/17 20:07 09/09/17 01:33 Prothrombin Time 11.8 SEC Prothromb Time International Ratio 1.1 RATIO Hemoglobin A1c 6.0 % Blood Urea Nitrogen 26 MG/DL Creatinine 1.97 MG/DL Random Glucose 141 MG/DL Calcium Level 9.4 MG/DL Magnesium Level 2.2 MG/DL Sodium Level 138 MEQ/L Potassium Level 4.4 MEQ/L Chloride Level 108 MEQ/L Carbon Dioxide Level 24.8 MEQ/L B-Type Natriuretic Peptide 171 PG/ML Triglycerides Level 91 MG/DL Cholesterol Level 171 MG/DL LDL Cholesterol 113 MG/DL HDL Cholesterol 40.1 MG/DL Cholesterol/HDL Ratio 4.26 RATIO Vitamin B12 Level 590 PG/ML Folate 12.7 NG/ML Free Thyroxine 1.13 NG/DL Thyroid Stimulating Hormone 3rd Gen 1.090 uIU/ML Total Creatine Kinase 67 U/L Troponin I 0.02 NG/ML Urine Color YELLOW Urine Turbidity CLEAR Urine pH 6.0 Urine Specific [place] 1.016 Urine Protein TRACE mg/dL Urine Glucose (UA) NEG mg/dL Urine Ketones NEG mg/dL Urine Occult Blood NEG Urine Nitrite NEG Urine Bilirubin NEG Urine Urobilinogen 2.0 MG/DL Urine Leukocyte Esterase SMALL Urine RBC 2 /hpf Urine WBC 10 /hpf Urine Mucus FEW /lpf Microscopic Urinalysis Comment CULTURE INDICATED Test 09/09/17 06:10 White Blood Count 8.8 TH/MM3 Red Blood Count 4.88 MIL/MM3 Hemoglobin 14.3 GM/DL Hematocrit 43.0 % Mean Corpuscular Volume 88.0 FL Mean Corpuscular Hemoglobin 29.3 PG Mean Corpuscular Hemoglobin Concent 33.3 % Red Cell Distribution Width 15.5 % Platelet Count 177 TH/MM3 Mean Platelet Volume 8.4 FL Neutrophils (%) (Auto) 68.4 % Lymphocytes (%) (Auto) 21.5 % Monocytes (%) (Auto) 7.0 % Eosinophils (%) (Auto) 2.4 % Basophils (%) (Auto) 0.7 % Neutrophils # (Auto) 6.0 TH/MM3 Lymphocytes # (Auto) 1.9 TH/MM3 Monocytes # (Auto) 0.6 TH/MM3 Eosinophils # (Auto) 0.2 TH/MM3 Basophils # (Auto) 0.1 TH/MM3 CBC Comment DIFF FINAL Differential Comment Activated Partial Thromboplast Time 45.1 SEC Blood Urea Nitrogen 27 MG/DL Creatinine 1.93 MG/DL Random Glucose 89 MG/DL Total Protein 6.8 GM/DL Albumin 3.1 GM/DL Calcium Level 9.0 MG/DL Alkaline Phosphatase 147 U/L Aspartate Amino Transf (AST/SGOT) 23 U/L Alanine Aminotransferase (ALT/SGPT) 30 U/L Total Bilirubin 1.2 MG/DL Sodium Level 137 MEQ/L Potassium Level 4.7 MEQ/L Chloride Level 105 MEQ/L Carbon Dioxide Level 22.9 MEQ/L Anion Gap 9 MEQ/L Estimat Glomerular Filtration Rate 35 ML/MIN Objective Remarks GENERAL: Awake, alert, anxious, moderate distress SKIN: Focused skin assessment warm/dry. HEAD: Atraumatic. Normocephalic. EYES: Pupils equal and round. No scleral icterus. No injection or drainage. ENT: No nasal bleeding or discharge. Mucous membranes pink and moist. NECK: Trachea midline. No JVD. CARDIOVASCULAR: Irregularly irregular, tachycardic. No murmur appreciated. RESPIRATORY: No accessory muscle use. Clear to auscultation. Breath sounds equal bilaterally. GASTROINTESTINAL: Abdomen soft, non-tender, nondistended. Hepatic and splenic margins not palpable. MUSCULOSKELETAL: No obvious deformities. No clubbing. No cyanosis. No edema. NEUROLOGICAL: Awake and alert. No obvious cranial nerve deficits. Motor grossly within normal limits. Normal speech. PSYCHIATRIC: Appropriate mood and affect; insight and judgment normal. Medications and IVs Current Medications Medications (Trade) Dose Ordered Sig/Palma Route Start Time Stop Time Status Last Admin (NS Flush) 2 ml UNSCH PRN IVF 09/08/17 07:30 Diltiazem HCl 125 mg/Sodium Chloride 125 ml @ 5 mls/hr TITRATE PRN IV 09/08/17 07:45 09/08/17 08:32 (Aspirin Chew) 81 mg DAILY CHEW 09/09/17 09:00 09/10/17 09:52 Sodium Chloride 1,000 ml @ 83 mls/hr Q12H3M IV 09/08/17 10:04 09/08/17 12:41 (NS Flush) 2 ml UNSCH PRN IV FLUSH 09/08/17 10:15 (NS Flush) 2 ml BID IV FLUSH 09/08/17 21:00 09/10/17 09:51 (Tylenol) 650 mg Q4H PRN PO 09/08/17 10:15 (Zofran Inj) 4 mg Q6H PRN IVP 09/08/17 10:15 (Narcan Inj) 0.4 mg UNSCH PRN IV PUSH 09/08/17 10:15 (Blossom-Colace) 1 tab BID PO 09/08/17 21:00 09/10/17 09:53 (Milk Of Magnesia Liq) 30 ml Q12H PRN PO 09/08/17 10:15 (Senokot) 17.2 mg Q12H PRN PO 09/08/17 10:15 (Dulcolax Supp) 10 mg DAILY PRN RECTAL 09/08/17 10:15 (Lactulose Liq) 30 ml DAILY PRN PO 09/08/17 10:15 (Pepcid Inj) 10 mg Q12H IV PUSH 09/08/17 11:00 09/10/17 00:44 (Lipitor) 40 mg DAILY PO 09/08/17 10:15 09/10/17 09:52 (Toprol Xl) 25 mg DAILY PO 09/08/17 10:15 09/10/17 09:53 (Pulmicort Respule Neb) 0.5 mg Q12HR NEB NEB 09/08/17 10:15 09/10/17 08:01 (Atrovent Neb) 0.5 mg Q4HR NEB NEB 09/08/17 12:00 09/10/17 08:00 (Mucinex Er) 600 mg BID PO 09/08/17 21:00 09/10/17 09:52 (Cardizem) 30 mg Q6HR PO 09/08/17 18:00 09/10/17 04:56 A/P Assessment and Plan 1. Atrial Fibrillation with RVR patient already seen at [facility] was started on Cardizem by mouth and sent home on no anticoagulation in ER received 20 mg of Cardizem IV, placed on Cardizem drip and started on Heparin IV, will consult senior project controls specialist, has also Chest pain, continue Cardiac monitoring, Cardiac Enzymes, Oxygen as needed to keep oxygen over 90%, Beta gaby start on Metoprolol XL 25 mg daily and follow, Aspirin already given in ER and continue, Morphine as needed for chest pain, Nitroglycerin Statins. sinus rhythm at this time. patient stable okay to discharge as per Doctor Zac but then the patient started with A Fib with RVR when he has some activity, he will come to see him and let me know. Patient on Cardizem 30 mg every six hours and Metoprolol. will go on Cardizem CD on discharge. 2. OA by history 3. Anxiety disorder/Depression on no medicines 4. CAD status post CABG x 5, PCI in 1997 5. COPD will continue Bronchodilator, Mucolytic and incentive spirometry 6. Hyperlipidemia on no medicines 7. GERD on low dose Famotidine while in house 8. Urolithiasis by history 9. CKD III stable continue monitor and avoid Contrast agents Gadolinium. he has multiple Allergies to this medicines. 10. Tobacco dependence strongly recommended to stop smoking. DVT prophylaxis with heparin Drip. Code status: Full Code. Discussed Condition With Patient, nurse Miss Duran Discharge Planning Once cleared by senior project controls specialist. Darius Dolan MD Sep 10, 2017 10:49
--- NOTE | 2017-09-10 11:06 | PD.CARD.PN ---
Subjective Subjective Remarks No events overnight Feels well, no chest pain/SOB Afib mostly controlled, some rare episodes of RVR with activity Objective Medications Current Medications Medications (Trade) Dose Ordered Sig/Palma Route Start Time Stop Time Status Last Admin (NS Flush) 2 ml UNSCH PRN IVF 09/08/17 07:30 Diltiazem HCl 125 mg/Sodium Chloride 125 ml @ 5 mls/hr TITRATE PRN IV 09/08/17 07:45 09/08/17 08:32 (Aspirin Chew) 81 mg DAILY CHEW 09/09/17 09:00 09/10/17 09:52 Sodium Chloride 1,000 ml @ 83 mls/hr Q12H3M IV 09/08/17 10:04 09/08/17 12:41 (NS Flush) 2 ml UNSCH PRN IV FLUSH 09/08/17 10:15 (NS Flush) 2 ml BID IV FLUSH 09/08/17 21:00 09/10/17 09:51 (Tylenol) 650 mg Q4H PRN PO 09/08/17 10:15 (Zofran Inj) 4 mg Q6H PRN IVP 09/08/17 10:15 (Narcan Inj) 0.4 mg UNSCH PRN IV PUSH 09/08/17 10:15 (Blossom-Colace) 1 tab BID PO 09/08/17 21:00 09/10/17 09:53 (Milk Of Magnesia Liq) 30 ml Q12H PRN PO 09/08/17 10:15 (Senokot) 17.2 mg Q12H PRN PO 09/08/17 10:15 (Dulcolax Supp) 10 mg DAILY PRN RECTAL 09/08/17 10:15 (Lactulose Liq) 30 ml DAILY PRN PO 09/08/17 10:15 (Pepcid Inj) 10 mg Q12H IV PUSH 09/08/17 11:00 09/10/17 00:44 (Lipitor) 40 mg DAILY PO 09/08/17 10:15 09/10/17 09:52 (Toprol Xl) 25 mg DAILY PO 09/08/17 10:15 09/10/17 09:53 (Pulmicort Respule Neb) 0.5 mg Q12HR NEB NEB 09/08/17 10:15 09/10/17 08:01 (Atrovent Neb) 0.5 mg Q4HR NEB NEB 09/08/17 12:00 09/10/17 08:00 (Mucinex Er) 600 mg BID PO 09/08/17 21:00 09/10/17 09:52 (Cardizem) 30 mg Q6HR PO 09/08/17 18:00 09/10/17 04:56 Vital Signs / I&O Vital Signs Date Time Temp Pulse Resp B/P (MAP) Pulse Ox O2 Delivery O2 Flow Rate FiO2 09/10/17 10:00 140 09/10/17 09:00 82 09/10/17 08:01 98 21 09/10/17 08:00 100 09/10/17 07:40 98.2 84 17 137/98 (111) 96 09/10/17 07:00 81 09/10/17 06:00 82 09/10/17 05:00 72 09/10/17 04:00 97.7 76 16 112/81 (91) 95 09/10/17 04:00 74 09/10/17 03:00 70 09/10/17 02:00 76 09/10/17 01:00 102 09/10/17 00:00 97.8 83 16 111/76 (88) 94 09/10/17 00:00 78 09/09/17 23:00 67 09/09/17 22:00 98 09/09/17 21:00 92 09/09/17 20:00 116 09/09/17 20:00 97.8 108 16 111/84 (93) 94 09/09/17 19:00 93 09/09/17 17:15 98.2 96 17 115/71 (86) 96 09/09/17 17:00 74 09/09/17 12:00 94 I/O 09/09/17 09/09/17 09/09/17 09/10/17 09/10/17 09/10/17 07:00 15:00 23:00 07:00 15:00 23:00 Intake Total 240 ml 665 ml 240 ml 720 ml Output Total 150 ml 1 ml Balance 90 ml 665 ml 240 ml 719 ml Intake Oral 240 ml 240 ml 720 ml IV Total 665 ml Output Urine Total 150 ml Stool Total 1 ml # Voids 1 4 2 # Bowel Movements 1 Physical Exam GENERAL: NAD, AAOx3 SKIN: Warm and dry. HEAD: Atraumatic. Normocephalic. EYES: Pupils equal and round. No scleral icterus. No injection or drainage. ENT: No nasal bleeding or discharge. Mucous membranes pink and moist. NECK: Trachea midline. No JVD. CARDIOVASCULAR: Irregularly irregular RESPIRATORY: No accessory muscle use. Clear to auscultation. Breath sounds equal bilaterally. GASTROINTESTINAL: Abdomen soft, non-tender, nondistended. Hepatic and splenic margins not palpable. MUSCULOSKELETAL: Extremities without clubbing, cyanosis, or edema. No obvious deformities. NEUROLOGICAL: Awake and alert. No obvious cranial nerve deficits. Motor grossly within normal limits. Five out of 5 muscle strength in the arms and legs. Normal speech. PSYCHIATRIC: Appropriate mood and affect; insight and judgment normal. Assessment and Plan Problem List: (1) Atrial fibrillation with RVR ICD Codes: I48.91 - Unspecified atrial fibrillation Status: Acute (2) New onset a-fib ICD Codes: I48.91 - Unspecified atrial fibrillation Status: Acute (3) Chest pain ICD Codes: R07.9 - Chest pain Status: Acute Assessment and Plan 1) New onset AFib Controlled on Cardizem 30mg q6hrs Can be switched to Cardizem CD on discharge CHADSVASc = 1, plan on keeping on ASA 81mg daily Will plan to increase Toprol XL to 50mg daily 2) SOB May be ischemic in nature vs due to elevated heart rates 3) Chest pain Abnormal myocardial stress test with small area of anterior wall (low risk) Discussed with the patient, wants to attempt medical management, before invasive management Nitro SL PRN for discharge Will plan to see me in the office to reevaluate for catheterization 4) Echo today If no problems, may be discharged home from a cardiovascular standpoint Problem Qualifiers (1) Chest pain: Qualified Codes: R07.9 - Chest pain, unspecified Galindo Frank DO Sep 10, 2017 11:06
[2017-09-10] MEDS ORDERED: METOPROLOL SUCCINATE 25 MG EXTENDED RELEASE TAB PO ONE ×2 (11:15)
[2017-09-10] MEDS ORDERED: METO50TA11 PO ×2 (11:57)
[2017-09-10] MEDS ORDERED: CARD120C4 PO ×2 (11:57)
[2017-09-10] MEDS ORDERED: ATOR40TA16 PO ×2 (11:57)
--- NOTE | 2017-09-10 12:00 | HHI.DS ---
Discharge Summary Admission Date Sep 10, 2017 at 10:31 Discharge Date: Sep 10, 2017 Admitting Diagnosis (1) Atrial fibrillation with RVR ICD Code: I48.91 - Unspecified atrial fibrillation Diagnosis: Principal Status: Acute Procedures Stress test Brief History - From Admission This is a pleasant 66 y/o male with OA, Anxiety disorder, Depression, CAD status post CABG x 5 and PCI, Hyperlipidemia, COPD, GERD Active Tobacco dependence, Inguinal hernia, Urolithiasis, CKD III, who came to ER with SOB and chest pain progressively worsening upon exertion for the past one week, he was seen at [facility] to get a cyst removed and during the procedure his heart rate was high he was sent to ER, He was given a medicine through his IV and then started on by mouth Cardizem daily. The procedure was done and patient was discharged home. He says that he continues to have the shortness of breath since then. When he arrived in triage his heart rate was in 140s to 150s. Patient has also kept a log of his blood pressure and heart rate for past 1 week. His heart rate has been higher than 100s all throughout. He describes his pain as a dull ache on the left parasternal area without any radiation. He says the pain is worse when he gets up and walks few steps. Same thing with the shortness of breath. He says that his pain is gone when he is laying down. Patient smokes one and half pack of cigarettes per day. He's not on any oxygen at home. He has significant coronary artery disease history with a bypass in 2007. He takes 1 baby aspirin every day. CBC/BMP: 09/09/17 0610 09/09/17 0610 Significant Findings Laboratory Tests Test 09/08/17 07:20 09/08/17 09:20 09/08/17 14:10 09/08/17 16:52 Prothrombin Time 11.8 SEC (9.8-11.6) Blood Urea Nitrogen 26 MG/DL (7-18) Creatinine 1.97 MG/DL (0.60-1.30) Random Glucose 141 MG/DL (74-106) Chloride Level 108 MEQ/L (98-107) Estimat Glomerular Filtration Rate 34 ML/MIN (>89) B-Type Natriuretic Peptide 171 PG/ML (0-100) LDL Cholesterol 113 MG/DL (0-99) Activated Partial Thromboplast Time 30.5 SEC (24.3-30.1) 51.1 SEC (24.3-30.1) Test 09/08/17 20:07 09/08/17 23:32 09/09/17 01:33 09/09/17 06:10 Activated Partial Thromboplast Time 41.3 SEC (24.3-30.1) 45.1 SEC (24.3-30.1) Urine Leukocyte Esterase SMALL (NEG) Urine WBC 10 /hpf (0-5) Urine Mucus FEW /lpf (OCC) Blood Urea Nitrogen 27 MG/DL (7-18) Creatinine 1.93 MG/DL (0.60-1.30) Albumin 3.1 GM/DL (3.4-5.0) Alkaline Phosphatase 147 U/L (45-117) Total Bilirubin 1.2 MG/DL (0.2-1.0) Estimat Glomerular Filtration Rate 35 ML/MIN (>89) Imaging Last Impressions Myocardial Perfusion Scan Nuc Med 09/09/17 0000 Signed Impressions: Service Date/Time: Saturday, September 09, 2017 13:28 - CONCLUSION: Minimal stress-induced ischemia anterior wall. RISK CATEGORY: Low (<1%% Annual Mortality Rate) Donte Vergara MD FACR Chest X-Ray 09/08/17 0725 Signed Impressions: Service Date/Time: Friday, September 08, 2017 07:37 - CONCLUSION: Stable appearance of the chest. Lungs remain grossly clear. Mild diffuse interstitial prominence.. Aravind Hoffman MD PE at Discharge GENERAL: Awake, alert, anxious, moderate distress SKIN: Focused skin assessment warm/dry. HEAD: Atraumatic. Normocephalic. EYES: Pupils equal and round. No scleral icterus. No injection or drainage. ENT: No nasal bleeding or discharge. Mucous membranes pink and moist. NECK: Trachea midline. No JVD. CARDIOVASCULAR: Irregularly irregular, tachycardic. No murmur appreciated. RESPIRATORY: No accessory muscle use. Clear to auscultation. Breath sounds equal bilaterally. GASTROINTESTINAL: Abdomen soft, non-tender, nondistended. Hepatic and splenic margins not palpable. MUSCULOSKELETAL: No obvious deformities. No clubbing. No cyanosis. No edema. NEUROLOGICAL: Awake and alert. No obvious cranial nerve deficits. Motor grossly within normal limits. Normal speech. PSYCHIATRIC: Appropriate mood and affect; insight and judgment normal. Hospital Course This is a pleasant 66 y/o male with OA, Anxiety disorder, Depression, CAD status post CABG x 5 and PCI, Hyperlipidemia, COPD, GERD Active Tobacco dependence, Inguinal hernia, Urolithiasis, CKD III, who came to ER with SOB and chest pain progressively worsening upon exertion for the past one week, he was seen at [facility] to get a cyst removed and during the procedure his heart rate was high he was sent to ER, He was given a medicine through his IV and then started on by mouth Cardizem daily. The procedure was done and patient was discharged home. He says that he continues to have the shortness of breath since then. When he arrived in triage his heart rate was in 140s to 150s. Patient has also kept a log of his blood pressure and heart rate for past 1 week. His heart rate has been higher than 100s all throughout. He describes his pain as a dull ache on the left parasternal area without any radiation. He says the pain is worse when he gets up and walks few steps. Same thing with the shortness of breath. He says that his pain is gone when he is laying down. Patient smokes one and half pack of cigarettes per day. He's not on any oxygen at home. He has significant coronary artery disease history with a bypass in 2007. He takes 1 baby aspirin every day. 09/09: Seen in his bedroom in the presence of nurse Miss Duran, as per patient he has Atrial Fibrillation with RVR recommended Stress test the patient states he has A Fib for the last two years after his CABG. no need for anticoagulation as per clinical documentation improvement specialist only Aspirin due to CHARD score 1, asked for Stress test. no complaint by patient today but wants to start Eating. 09/10: Stable in his bedroom already recommended by Doctor Frank for discharge today, but the patient has heart rate in 150s with some activity so Doctor Zac will come to see the patient again the nurse will notify me if okay to discharge later today. no nausea, vomit or diarrhea. Assessment and Plan 1. Atrial Fibrillation with RVR patient already seen at [facility] was started on Cardizem by mouth and sent home on no anticoagulation in ER received 20 mg of Cardizem IV, placed on Cardizem drip and started on Heparin IV, will consult clinical documentation improvement specialist, has also Chest pain, continue Cardiac monitoring, Cardiac Enzymes, Oxygen as needed to keep oxygen over 90%, Beta gaby start on Metoprolol XL 25 mg daily and follow, Aspirin already given in ER and continue, Morphine as needed for chest pain, Nitroglycerin Statins. sinus rhythm at this time. patient stable okay to discharge as per Doctor Frank but then the patient started with A Fib with RVR when he has some activity, he will come to see him and let me know. Patient on Cardizem 30 mg every six hours and Metoprolol. will go on Cardizem CD on discharge. 2. OA by history 3. Anxiety disorder/Depression on no medicines 4. CAD status post CABG x 5, PCI in 1997 5. COPD will continue Bronchodilator, Mucolytic and incentive spirometry 6. Hyperlipidemia on no medicines 7. GERD on low dose Famotidine while in house 8. Urolithiasis by history 9. CKD III stable continue monitor and avoid Contrast agents Gadolinium. he has multiple Allergies to this medicines. 10. Tobacco dependence strongly recommended to stop smoking. DVT prophylaxis with heparin Drip. Code status: Full Code. Discussed Condition With Patient, nurse Miss Duran Discharge Planning as per Doctor Frank okay to discharge. Pt Condition on Discharge: Good Discharge Disposition: Discharge Home Discharge Time: <= 30 minutes Discharge Instructions DIET: Follow Instructions for: Heart Healthy Diet Activities you can perform: Regular-No Restrictions Darius Dolan MD Sep 10, 2017 12:00
--- NOTE | 2017-09-10 19:37 | ECHRPT ---
Indication: ATRIAL FIB/FLUTTER CONCLUSIONS Normal left ventricular size. Wall thickness is normal. The left ventricular systolic function is severely reduced with an estimated ejection fraction in th e range of 25-30%. There is global left ventricular dysfunction. The right ventricle is mildly dilated. The left atrial size is mildly dilated. The right atrial size is moderately dilated. Mild mitral valve regurgitation. Trace aortic valve regurgitation. There is mild tricuspid valve regurgitation. BP: 107 / 77 HR: Rhythm: Atrial fibrillation, Atrial flut ter MEASUREMENTS (Male / Female) Normal Values Technical Quality:Fair 2D ECHO LV Diastolic Diameter PLAX 5.4 cm 4.2 - 5.9 / 3.9 - 5.3 cm LV Systolic Diameter PLAX 4.5 cm IVS Diastolic Thickness 0.9 cm 0.6 - 1.0 / 0.6 - 0.9 cm LVPW Diastolic Thickness 0.9 cm 0.6 - 1.0 / 0.6 - 0.9 cm LV Relative Wall Thickness 0.3 LVOT Diameter 2.1 cm Aortic Root Diameter 3.1 cm LA Systolic Diameter LX 3.7 cm 3.0 - 4.0 / 2.7 - 3.8 cm M-MODE AV Cusp Separation MM 1.9 cm DOPPLER AV Peak Velocity 122.3 cm/s AV Peak Gradient 6.0 mmHg AV Mean Gradient 3.3 mmHg AV Velocity Time Integral 17.5 cm LVOT Peak Velocity 90.7 cm/s LVOT Peak Gradient 3.3 mmHg LVOT Velocity Time Integral 15.3 cm AV Area Cont Eq vti 3.0 cm AV Area Cont Eq pk 2.6 cm Mitral E Point Velocity 115.7 cm/s LV E' Septal Velocity 7.3 cm/s Mitral E to LV E' Septal Ratio 15.9 TR Peak Velocity 244.0 cm/s TR Peak Gradient 23.8 mmHg Right Atrial Pressure 10.0 mmHg Pulmonary Artery Systolic Pressu 33.8 mmHg Right Ventricular Systolic Press 33.8 mmHg PV Peak Velocity 44.4 cm/s PV Peak Gradient 0.8 mmHg FINDINGS LEFT VENTRICLE Normal left ventricular size. Wall thickness is normal. The left ventricular systolic function is severely reduced with an estimated ejection fraction in th e range of 25-30%. There is global left ventricular dysfunction. RIGHT VENTRICLE The right ventricle is mildly dilated. LEFT ATRIUM The left atrial size is mildly dilated. RIGHT ATRIUM The right atrial size is moderately dilated. ATRIAL SEPTUM Normal atrial septal thickness without atrial level shunting by limited color doppler interrogation. AORTA The aortic root and proximal ascending aorta are normal in size on limited imaging. MITRAL VALVE Mild mitral valve regurgitation. AORTIC VALVE Trace aortic valve regurgitation. TRICUSPID VALVE There is mild tricuspid valve regurgitation. PULMONARY VALVE No pulmonary valve regurgitation or stenosis. VESSELS The inferior vena cava is normal in size. PERICARDIUM No pericardial effusion. Alejandro Pardo MD (Electronically Signed) Final Date:10 September 2017 19:36
[2017-09-11] MEDS ORDERED: METOPROLOL SUCCINATE 50 MG EXTENDED RELEASE TAB PO SCH ×2 (09:00)
--- NOTE | 2017-09-11 12:09 | HHI.FF ---
Face to Face Verification Diagnosis: (1) Atrial fibrillation (2) Syncope (3) Chest pain Physical Therapy Order: Evaluate and Treat, Improve ambulation, Strength and gait training Home Health Nursing Order: Medical education Signs/symptoms of disease process Medication education-adverse effect Nursing assessment with vital signs I have seen patient Sudhir Thornton on 09/11/17. My clinical findings support the need for the requested home health care services because: Ltd mobility - disease progression I certify that my clinical findings support that this patient is homebound because: Unsafe to leave home unassisted Darius Dolan MD Sep 11, 2017 12:09
== END 2017-09-10 13:09 | disposition home or self-care (01) | DRG 310 ==
LOC: NEPE 07:08 → INTOOBSV 09:53 → NEDA 09:53 → HCIS 14:40 → OBSVTOIN 09-10 10:31
PROVIDERS: ADMIT Internal Medicine; ATTEND Internal Medicine
DX: I48.91 Unspecified atrial fibrillation (principal); I42.9 Cardiomyopathy, unspecified; J44.9 Chronic obstructive pulmonary disease, unspecified; N18.3 Chronic kidney disease, stage 3 (moderate); F32.9 Major depressive disorder, single episode, unspecified; Z95.1 Presence of aortocoronary bypass graft; F41.9 Anxiety disorder, unspecified; F17.210 Nicotine dependence, cigarettes, uncomplicated; E78.00 Pure hypercholesterolemia, unspecified; I25.10 Atherosclerotic heart disease of native coronary artery without angina pectoris; Z79.82 Long term (current) use of aspirin; M19.90 Unspecified osteoarthritis, unspecified site; K21.9 Gastro-esophageal reflux disease without esophagitis; I25.2 Old myocardial infarction; Z87.442 Personal history of urinary calculi; Z95.5 Presence of coronary angioplasty implant and graft
CPT/HCPCS: 71010; 78452; 80048; 80053; 80061; 81001; 82272; 82550; 82607; 82652; 82746; 82948; 83036; 83735; 83880; 84439; 84443; 84484; 85025; 85027; 85610; 85730; 87086; 93005; 93017; 93306; 94150; 94640; 94664; A9502; G8987-GP; G8988-GP; J1644; J1940; J2785; J7030; J7626; J7644